=== PATIENT | female | born 1945 | race Caucasian/White ===

== ENCOUNTER 2019-02-15 06:31 | Emergency (ER) | payer MEDICARE, BC, SELFPAY ==
[2019-02-15] VITALS (7 sets, daily range): BP systolic 119–170; BP diastolic 46–77; PULSE 52–88; RESP 16–21; TEMP 36.4; O2SAT 93–100; BMI 40.5
--- NOTE | 2019-02-15 06:43 | ED.DIZZY ---
HPI - Dizziness <Dejuan Pedroza DO - Last Filed: 02/16/19 03:30> General Chief Complaint: Dizziness Stated Complaint: Dizzy Time Seen by Provider: 02/15/19 06:37 Source: patient and EMS Mode of arrival: EMS Limitations: no limitations History of Present Illness HPI Narrative: 73-year-old female nonsmoker presents with a chief complaint of dizziness upon waking this morning. 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 She states she thinks her dizziness is worse upon standing but is unclear because she has not tried since it started. She denies any chest pain or shortness of breath. She denies any recent injury nor runny nose, sore throat nor fever or chills. She does not think her dizziness changes with her eyes open versus closed. She denies any new medications or diet. She has had no recent injuries or trauma. She denies any recent long-distance travel. She recently relocated here from [place] complaint: dizziness Onset (ago): hour(s) Timing: awoke with symptoms Description: lightheadedness History of similar episodes: Yes History of trauma: No Severity: moderate Relieving factors: remaining still Exacerbating factors: movement Associated symptoms: denies other symptoms Related Data Home Medications Medication Instructions Recorded Confirmed amlodipine 10 mg PO DAILY 02/15/19 02/15/19 atorvastatin 40 mg PO DAILY 02/15/19 02/15/19 levothyroxine 150 mcg PO DAILY 02/15/19 02/15/19 losartan 100 mg PO DAILY 02/15/19 02/15/19 metoprolol succinate 25 mg PO DAILY 02/15/19 02/15/19 Previous Rx's Medication Instructions Recorded meclizine 25 mg PO TID PRN #10 tab 02/15/19 ondansetron 4 mg PO Q6-8H PRN #10 tab 02/15/19 Allergies Allergy/AdvReac Type Severity Reaction Status Date / Time No Known Drug Allergies Allergy Verified 02/15/19 07:40 Review of Systems <Dejuan Pedroza DO - Last Filed: 02/16/19 03:30> Constitutional Denies chills, Denies fever(s), Denies lethargy and Denies weakness Eyes Denies change in vision, Denies eye discharge, Denies irritation and Denies loss of vision ENT Ears, Nose, Mouth, and Throat: Denies change in voice, Reports dizziness, Denies neck pain and Denies sore throat Cardiovascular Denies chest pain, Denies irregular heart rhythm, Denies lightheadedness, Denies palpitations, Denies dyspnea, Denies dyspnea on exertion and Denies orthopnea Respiratory Denies cough, Denies dyspnea, Denies dyspnea on exertion and Denies wheezing Gastrointestinal Gastrointestinal: Denies abdominal pain, Denies change in bowel habits, Denies diarrhea, Denies nausea and Denies vomiting Genitourinary Denies hematuria, Denies flank pain, Denies urinary incontinence and Denies urinary urgency Musculoskeletal Denies neck pain Integumentary/Breasts Denies pruritus, Denies erythema, Denies rash and Denies wounds Neurologic Denies confusion, Reports dizziness, Denies loss of vision and Denies weakness Psychiatric Denies anxiety, Denies confusion, Denies depression, Denies homicidal ideation and Denies suicidal ideation Endocrine Denies palpitations Hematologic/Lymphatic Denies easy bruising Allergic/Immunologic Denies wheezing PFSH <Dejuan Pedroza DO - Last Filed: 02/16/19 03:30> Medical History (Updated 02/15/19 @ 10:41 by Justine Valderrama DO) Stroke (Acute) Social History (Updated 02/15/19 @ 06:46 by Dejuan Pedroza DO) Smoking Status: Former smoker alcohol intake: never substance use type: does not use Social History (Updated 02/15/19 @ 06:46 by Dejuan Pedroza DO) Smoking Status: Former smoker alcohol intake: never substance use type: does not use Exam <Dejuan Pedroza DO - Last Filed: 02/16/19 03:30> Narrative Exam Narrative: GENERAL: 73-year-old female appears stated age, she is anxious and has a resting tremor which is not normal HEAD: Atraumatic. Normocephalic. No temporal or scalp tenderness. EYES: Pupils equal round and reactive. Extraocular motions intact. No scleral icterus. No injection or drainage. ENT: Nose without bleeding, purulent drainage or septal hematoma. Throat without erythema, tonsillar hypertrophy or exudate. Uvula midline. Airway patent. NECK: Trachea midline. No JVD or lymphadenopathy. Supple, nontender, no meningeal signs. CARDIOVASCULAR: Regular rate and rhythm without murmurs, gallops, or rubs. RESPIRATORY: Clear to auscultation. Breath sounds equal bilaterally. No wheezes, rales, or rhonchi. GASTROINTESTINAL: Abdomen soft, non-tender, nondistended. No hepato-splenomegaly, or palpable masses. No guarding. EXTREMITIES: No clubbing, cyanosis, or edema. No joint tenderness, effusion, or edema noted. BACK: Nontender without deformity or crepitance. No flank tenderness. NEURO: Mild left-sided facial weakness AOx3. SKIN: No rash or erythema. Initial Vital Signs Initial Vital Signs: Vital Signs Temperature 97.6 F 02/15/19 06:41 Pulse Rate 68 02/15/19 06:41 Respiratory Rate 21 02/15/19 06:41 Blood Pressure 170/61 H 02/15/19 06:41 Pulse Oximetry 100 02/15/19 06:41 <Justine Valderrama DO - Last Filed: 02/15/19 11:48> Initial Vital Signs Initial Vital Signs: Vital Signs Temperature 97.6 F 02/15/19 06:41 Pulse Rate 68 02/15/19 06:41 Respiratory Rate 21 02/15/19 06:41 Blood Pressure 170/61 H 02/15/19 06:41 Pulse Oximetry 100 02/15/19 06:41 Course <Dejuan Pedroza DO - Last Filed: 02/16/19 03:30> Orders Ordered: Discontinued Medications Sodium Chloride (Normal Saline 0.9%) 500 mls @ 1,000 mls/hr IV BOLUS ONE Stop: 02/15/19 07:07 Last Infusion: 02/15/19 07:40 Dose: 0 mls/hr Admin: 02/15/19 06:53 Dose: 1,000 mls/hr Meclizine HCl (Antivert) 25 mg PO NOW ONE Stop: 02/15/19 08:15 Last Admin: 02/15/19 08:15 Dose: 25 mg Ondansetron HCl (Zofran) 4 mg IV NOW ONE Stop: 02/15/19 08:11 Last Admin: 02/15/19 08:10 Dose: 4 mg Vital Signs - 8 hr 02/15/19 06:41 02/15/19 07:56 02/15/19 08:10 Temperature 97.6 F Pulse Rate 68 64 Pulse Rate [Orthostatic Lying] 65 Pulse Rate [Orthostatic Sitting] 70 Pulse Rate [Orthostatic Standing] 88 Respiratory Rate 21 16 Blood Pressure 170/61 H Blood Pressure [Left Arm] Blood Pressure [Orthostatic Lying] 158/62 H Blood Pressure [Orthostatic Sitting] 146/77 H Blood Pressure [Orthostatic Standing] 163/76 H Pulse Oximetry 100 93 02/15/19 08:30 02/15/19 09:15 02/15/19 10:35 Temperature Pulse Rate 52 L 52 L 55 L Pulse Rate [Orthostatic Lying] Pulse Rate [Orthostatic Sitting] Pulse Rate [Orthostatic Standing] Respiratory Rate 18 16 16 Blood Pressure Blood Pressure [Left Arm] 124/55 L 128/57 L 119/46 L Blood Pressure [Orthostatic Lying] Blood Pressure [Orthostatic Sitting] Blood Pressure [Orthostatic Standing] Pulse Oximetry 99 96 94 02/15/19 11:05 Temperature Pulse Rate 53 L Pulse Rate [Orthostatic Lying] Pulse Rate [Orthostatic Sitting] Pulse Rate [Orthostatic Standing] Respiratory Rate 16 Blood Pressure 119/46 L Blood Pressure [Left Arm] Blood Pressure [Orthostatic Lying] Blood Pressure [Orthostatic Sitting] Blood Pressure [Orthostatic Standing] Pulse Oximetry 95 <Justine Valderrama, - Last Filed: 02/15/19 11:48> Orders Ordered: Discontinued Medications Sodium Chloride (Normal Saline 0.9%) 500 mls @ 1,000 mls/hr IV BOLUS ONE Stop: 02/15/19 07:07 Last Infusion: 02/15/19 07:40 Dose: 0 mls/hr Admin: 02/15/19 06:53 Dose: 1,000 mls/hr Meclizine HCl (Antivert) 25 mg PO NOW ONE Stop: 02/15/19 08:15 Last Admin: 02/15/19 08:15 Dose: 25 mg Ondansetron HCl (Zofran) 4 mg IV NOW ONE Stop: 02/15/19 08:11 Last Admin: 02/15/19 08:10 Dose: 4 mg Vital Signs - 8 hr 02/15/19 06:41 02/15/19 07:56 02/15/19 08:10 Temperature 97.6 F Pulse Rate 68 64 Pulse Rate [Orthostatic Lying] 65 Pulse Rate [Orthostatic Sitting] 70 Pulse Rate [Orthostatic Standing] 88 Respiratory Rate 21 16 Blood Pressure 170/61 H Blood Pressure [Left Arm] Blood Pressure [Orthostatic Lying] 158/62 H Blood Pressure [Orthostatic Sitting] 146/77 H Blood Pressure [Orthostatic Standing] 163/76 H Pulse Oximetry 100 93 02/15/19 08:30 02/15/19 09:15 02/15/19 10:35 Temperature Pulse Rate 52 L 52 L 55 L Pulse Rate [Orthostatic Lying] Pulse Rate [Orthostatic Sitting] Pulse Rate [Orthostatic Standing] Respiratory Rate 18 16 16 Blood Pressure Blood Pressure [Left Arm] 124/55 L 128/57 L 119/46 L Blood Pressure [Orthostatic Lying] Blood Pressure [Orthostatic Sitting] Blood Pressure [Orthostatic Standing] Pulse Oximetry 99 96 94 02/15/19 11:05 Temperature Pulse Rate 53 L Pulse Rate [Orthostatic Lying] Pulse Rate [Orthostatic Sitting] Pulse Rate [Orthostatic Standing] Respiratory Rate 16 Blood Pressure 119/46 L Blood Pressure [Left Arm] Blood Pressure [Orthostatic Lying] Blood Pressure [Orthostatic Sitting] Blood Pressure [Orthostatic Standing] Pulse Oximetry 95 MDM - Dizziness <Dejuan Pedroza, - Last Filed: 02/16/19 03:30> Lab Data Result diagrams: 02/15/19 06:20 02/15/19 06:20 Lab Results 02/15/19 02/15/19 02/15/19 Range/Units 06:20 06:20 06:20 WBC 6.9 (4.5-11.0) X10^3/uL RBC 4.80 (4.0-5.2) X10^6/uL Hgb 13.9 (12.0-16.0) g/dL Hct 41.8 (36-46) % MCV 87.2 (80-100) fL MCH 29.0 (26-34) PG MCHC 33.3 (30-36) % RDW 14.1 (11.6-14.8) % Plt Count 194 (150-400) X10^3/uL Neut % (Auto) 62.5 (50-75) % Lymph % (Auto) 26.7 (25-40) % Sanborn % (Auto) 7.6 (3-14) % Eos % (Auto) 2.6 (2-4) % Baso % (Auto) 0.6 (0-2) % Neut # (Auto) 4300 (4089-5778) /uL Lymph # (Auto) 1800 (0478-1015) /uL [place]born # (Auto) 500 (0-900) /uL Eos # (Auto) 200 (0-450) /uL Baso # (Auto) 0 (0-100) /uL Sodium 139 (137-145) mmol/L Potassium 4.6 (3.4-5.1) mmol/L Chloride 107 (98-107) mmol/L Carbon Dioxide 21 L (22-32) mmol/L BUN 25 H (7-17) mg/dL Creatinine 0.70 (0.52-1.04) mg/dL Estimated GFR > 60.0 (>60) mL/min BUN/Creatinine Ratio 35.7 H (6-22) Glucose 106 (80-110) mg/dL Lactate (0.7-2.1) mmol/L Calcium 10.7 H (8.4-10.2) mg/dL Troponin I < 0.012 (0.01-0.034) ng/mL Procalcitonin < 0.05 (<0.5) ng/mL 02/15/19 Range/Units 06:55 WBC (4.5-11.0) X10^3/uL RBC (4.0-5.2) X10^6/uL Hgb (12.0-16.0) g/dL Hct (36-46) % MCV (80-100) fL MCH (26-34) PG MCHC (30-36) % RDW (11.6-14.8) % Plt Count (150-400) X10^3/uL Neut % (Auto) (50-75) % Lymph % (Auto) (25-40) % Sanborn % (Auto) (3-14) % Eos % (Auto) (2-4) % Baso % (Auto) (0-2) % Neut # (Auto) (7602-7847) /uL Lymph # (Auto) (0396-3208) /uL Sanborn # (Auto) (0-900) /uL Eos # (Auto) (0-450) /uL Baso # (Auto) (0-100) /uL Sodium (137-145) mmol/L Potassium (3.4-5.1) mmol/L Chloride (98-107) mmol/L Carbon Dioxide (22-32) mmol/L BUN (7-17) mg/dL Creatinine (0.52-1.04) mg/dL Estimated GFR (>60) mL/min BUN/Creatinine Ratio (6-22) Glucose (80-110) mg/dL Lactate 1.9 (0.7-2.1) mmol/L Calcium (8.4-10.2) mg/dL Troponin I (0.01-0.034) ng/mL Procalcitonin (<0.5) ng/mL Urine Dip Bedside Urine Glucose Negative Bedside Urine Bilirubin - Negative Bedside Urine Ketone - Negative Urine Specific Page 1.010 Bedside Urine Occult Blood - Negative Bedside Urine pH 6.0 Bedside Urine Protein - Negative Bedside Urine Urobilinogen - Negative Bedside Urine Nitrite - Negative Bedside Urine Leukocytes - Negative Esterase ECG Data Prior ECG tracings: not available for review Interpretation: Normal sinus rhythm, rate 64, no ST elevations or depressions. No ectopy <Justine Valderrama DO - Last Filed: 02/15/19 11:48> Lab Data Attestation: I reviewed the patient's lab results. Lab Results 02/15/19 02/15/19 02/15/19 Range/Units 06:20 06:20 06:20 WBC 6.9 (4.5-11.0) X10^3/uL RBC 4.80 (4.0-5.2) X10^6/uL Hgb 13.9 (12.0-16.0) g/dL Hct 41.8 (36-46) % MCV 87.2 (80-100) fL MCH 29.0 (26-34) PG MCHC 33.3 (30-36) % RDW 14.1 (11.6-14.8) % Plt Count 194 (150-400) X10^3/uL Neut % (Auto) 62.5 (50-75) % Lymph % (Auto) 26.7 (25-40) % Sanborn % (Auto) 7.6 (3-14) % Eos % (Auto) 2.6 (2-4) % Baso % (Auto) 0.6 (0-2) % Neut # (Auto) 4300 (9356-1515) /uL Lymph # (Auto) 1800 (6904-6298) /uL Sanborn # (Auto) 500 (0-900) /uL Eos # (Auto) 200 (0-450) /uL Baso # (Auto) 0 (0-100) /uL Sodium 139 (137-145) mmol/L Potassium 4.6 (3.4-5.1) mmol/L Chloride 107 (98-107) mmol/L Carbon Dioxide 21 L (22-32) mmol/L BUN 25 H (7-17) mg/dL Creatinine 0.70 (0.52-1.04) mg/dL Estimated GFR > 60.0 (>60) mL/min BUN/Creatinine Ratio 35.7 H (6-22) Glucose 106 (80-110) mg/dL Lactate (0.7-2.1) mmol/L Calcium 10.7 H (8.4-10.2) mg/dL Troponin I < 0.012 (0.01-0.034) ng/mL Procalcitonin < 0.05 (<0.5) ng/mL 02/15/ Range/Units 06:55 WBC (4.5-11.0) X10^3/uL RBC (4.0-5.2) X10^6/uL Hgb (12.0-16.0) g/dL Hct (36-46) % MCV (80-100) fL MCH (26-34) PG MCHC (30-36) % RDW (11.6-14.8) % Plt Count (150-400) X10^3/uL Neut % (Auto) (50-75) % Lymph % (Auto) (25-40) % Sanborn % (Auto) (3-14) % Eos % (Auto) (2-4) % Baso % (Auto) (0-2) % Neut # (Auto) (8815-8842) /uL Lymph # (Auto) (3328-0026) /uL Sanborn # (Auto) (0-900) /uL Eos # (Auto) (0-450) /uL Baso # (Auto) (0-100) /uL Sodium (137-145) mmol/L Potassium (3.4-5.1) mmol/L Chloride (98-107) mmol/L Carbon Dioxide (22-32) mmol/L BUN (7-17) mg/dL Creatinine (0.52-1.04) mg/dL Estimated GFR (>60) mL/min BUN/Creatinine Ratio (6-22) Glucose (80-110) mg/dL Lactate 1.9 (0.7-2.1) mmol/L Calcium (8.4-10.2) mg/dL Troponin I (0.01-0.034) ng/mL Procalcitonin (<0.5) ng/mL Urine Dip Bedside Urine Glucose Negative Bedside Urine Bilirubin - Negative Bedside Urine Ketone - Negative Urine Specific Page 1.010 Bedside Urine Occult Blood - Negative Bedside Urine pH 6.0 Bedside Urine Protein - Negative Bedside Urine Urobilinogen - Negative Bedside Urine Nitrite - Negative Bedside Urine Leukocytes - Negative Esterase Imaging Data CT scan - head: Radiologist's impression: PROCEDURE: CT HEAD/BRAIN WO CON INDICATIONS: dizziness, hx CVA TECHNIQUE: Noncontrast 4.5 mm thick angled axial sections acquired from the foramen magnum to the vertex, with coronal and sagittal reformats. For radiation dose reduction, the following was used: automated exposure control, adjustment of mA and/or kV according to patient size. COMPARISON: None. FINDINGS: Image quality: Excellent. CSF spaces: Basal cisterns are patent. No extra-axial fluid collections. The ventricles are symmetric in size and shape. Brain: There is aneurysm coil in the left suprasellar cistern. Hypodensity and encephalomalacia in the left frontal lobe is consistent with old infarct/insult. No intracranial bleeds or masses. There is cerebral volume loss for age, with resultant ventricular and sulcal prominence. There are periventricular and deep white matter chronic small vessel ischemic changes. There is intracranial internal carotid artery atherosclerosis. Skull and face: There is a left frontal craniotomy. Calvarium and visualized facial bones appear intact, without suspicious lesions. Sinuses: There is mucosal thickening in the right axillary sinus. The mastoids are clear. IMPRESSION: 1. No acute intracranial abnormalities. 2. Left frontal craniotomy and encephalomalacia. 3. Cerebral volume loss and chronic microvascular ischemic changes. 4. Right maxillary sinusitis. The result was discussed with Dr. Valderrama on 02/15/2019 at 0758 hours. Dictated by: Shalini Felton M.D. on 02/15/2019 at 7:57 ECG Data Attestation: I personally reviewed and interpreted this ECG as follows: Prior ECG tracings: not available for review Interpretation: Sinus rhythm rate 60 for as needed rule [address] changes no T-wave inversions. MDM Narrative Medical decision making narrative: Patient signed out to me by casino shift manager provider. I have seen evaluated patient myself. She states the dizziness started when she was on the toilet this morning. She has overactive bladder and goes frequently. She was just on the commode the ed. She said getting up made her dizzy and nauseous when she sat down she started to feel little bit better however moving from the commode to the bed again she again felt nauseous. Patient received meclizine which did seem to help. Afterwards she is ambulatory with her walker symptoms not totally resolved but significantly improved. I have spoken with her son-in-law and her daughter. At this time the patient may be discharged. Son-in-law here to pick patient up. Discharge Plan Departure Patient Disposition: Home Clinical Impression: Vertigo Discharge Date/Time: 02/15/19 11:10 Interventions: ED Discharge Assessment Last Done: 02/15/19 11:05 Instructions: DI for Vertigo Activity Restrictions/Additional Instructions: *You have been diagnosed with vertigo *What to do: White you experience today is likely vertigo. Head CT and blood work are reassuring no sign of infection. Be sure to use walker while ambulating so that you do not fall. *Continue to take medications as directed sent to [facility] Zofran 4 mg every 6-8 hours if needed for nausea Meclizine 25 mg every 8 hours if needed for dizziness. *Follow up with your primary care provider in 2-3 days call [phone], to help get set up with a PCP *Return to ER if you should have increased dizziness passing out falling, chest pain, increased confusion or any new, worsening or concerning symptoms Prescriptions: New meclizine 25 mg tablet 25 mg PO TID PRN (Reason: dizziness) Qty: 10 RF: 0 ondansetron 4 mg tablet,disintegrating 4 mg PO Q6-8H PRN (Reason: nausea and vomiting) Qty: 10 RF: 0 No Action atorvastatin 40 mg tablet 40 mg PO DAILY RF: 0 amlodipine 10 mg tablet 10 mg PO DAILY RF: 0 levothyroxine 150 mcg tablet 150 mcg PO DAILY RF: 0 metoprolol succinate 25 mg tablet extended release 24 hr 25 mg PO DAILY RF: 0 losartan 100 mg tablet 100 mg PO DAILY RF: 0 Referrals: [facility] [Outside] ED Cosign/Signout <Dejuan Pedroza, DO - Last Filed: 02/16/19 03:30> Cosign ED Attending Ludivinaature Attestation: I was immediately available in the department for consultation. Documentation has been reviewed. I agree with assessment and plan.
--- NOTE | 2019-02-15 06:48 | ED_ITS ---
HPI - Dizziness <Dejuan Pedroza DO - Last Filed: 02/16/19 03:30> General Chief Complaint: Dizziness Stated Complaint: Dizzy Time Seen by Provider: 02/15/19 06:37 Source: patient and EMS Mode of arrival: EMS Limitations: no limitations History of Present Illness HPI Narrative: 73-year-old female nonsmoker presents with a chief complaint of dizziness upon waking this morning. 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 She states she thinks her dizziness is worse upon standing but is unclear because she has not tried since it started. She denies any chest pain or shortness of breath. She denies any recent injury nor runny nose, sore throat nor fever or chills. She does not think her dizziness changes with her eyes open versus closed. She denies any new medications or diet. She has had no recent injuries or trauma. She denies any recent long-distance travel. She recently relocated here from [place] complaint: dizziness Onset (ago): hour(s) Timing: awoke with symptoms Description: lightheadedness History of similar episodes: Yes History of trauma: No Severity: moderate Relieving factors: remaining still Exacerbating factors: movement Associated symptoms: denies other symptoms Related Data Home Medications Medication Instructions Recorded Confirmed amlodipine 10 mg PO DAILY 02/15/19 02/15/19 atorvastatin 40 mg PO DAILY 02/15/19 02/15/19 levothyroxine 150 mcg PO DAILY 02/15/19 02/15/19 losartan 100 mg PO DAILY 02/15/19 02/15/19 metoprolol succinate 25 mg PO DAILY 02/15/19 02/15/19 Previous Rx's Medication Instructions Recorded meclizine 25 mg PO TID PRN #10 tab 02/15/19 ondansetron 4 mg PO Q6-8H PRN #10 tab 02/15/19 Allergies Allergy/AdvReac Type Severity Reaction Status Date / Time No Known Drug Allergies Allergy Verified 02/15/19 07:40 Review of Systems <Dejuan Pedroza DO - Last Filed: 02/16/19 03:30> Constitutional Denies chills, Denies fever(s), Denies lethargy and Denies weakness Eyes Denies change in vision, Denies eye discharge, Denies irritation and Denies loss of vision ENT Ears, Nose, Mouth, and Throat: Denies change in voice, Reports dizziness, Denies neck pain and Denies sore throat Cardiovascular Denies chest pain, Denies irregular heart rhythm, Denies lightheadedness, Denies palpitations, Denies dyspnea, Denies dyspnea on exertion and Denies orthopnea Respiratory Denies cough, Denies dyspnea, Denies dyspnea on exertion and Denies wheezing Gastrointestinal Gastrointestinal: Denies abdominal pain, Denies change in bowel habits, Denies diarrhea, Denies nausea and Denies vomiting Genitourinary Denies hematuria, Denies flank pain, Denies urinary incontinence and Denies urinary urgency Musculoskeletal Denies neck pain Integumentary/Breasts Denies pruritus, Denies erythema, Denies rash and Denies wounds Neurologic Denies confusion, Reports dizziness, Denies loss of vision and Denies weakness Psychiatric Denies anxiety, Denies confusion, Denies depression, Denies homicidal ideation and Denies suicidal ideation Endocrine Denies palpitations Hematologic/Lymphatic Denies easy bruising Allergic/Immunologic Denies wheezing PFSH <Dejuan Pedroza DO - Last Filed: 02/16/19 03:30> Medical History (Updated 02/15/19 @ 10:41 by Justine Valderrama DO) Stroke (Acute) Social History (Updated 02/15/19 @ 06:46 by Dejuan Pedroza DO) Smoking Status: Former smoker alcohol intake: never substance use type: does not use Social History (Updated 02/15/19 @ 06:46 by Dejuan Pedroza DO) Smoking Status: Former smoker alcohol intake: never substance use type: does not use Exam <Dejuan Pedroza DO - Last Filed: 02/16/19 03:30> Narrative Exam Narrative: GENERAL: 73-year-old female appears stated age, she is anxious and has a resting tremor which is not normal HEAD: Atraumatic. Normocephalic. No temporal or scalp tenderness. EYES: Pupils equal round and reactive. Extraocular motions intact. No scleral icterus. No injection or drainage. ENT: Nose without bleeding, purulent drainage or septal hematoma. Throat without erythema, tonsillar hypertrophy or exudate. Uvula midline. Airway patent. NECK: Trachea midline. No JVD or lymphadenopathy. Supple, nontender, no meningeal signs. CARDIOVASCULAR: Regular rate and rhythm without murmurs, gallops, or rubs. RESPIRATORY: Clear to auscultation. Breath sounds equal bilaterally. No wheezes, rales, or rhonchi. GASTROINTESTINAL: Abdomen soft, non-tender, nondistended. No hepato- splenomegaly, or palpable masses. No guarding. EXTREMITIES: No clubbing, cyanosis, or edema. No joint tenderness, effusion, or edema noted. BACK: Nontender without deformity or crepitance. No flank tenderness. NEURO: Mild left-sided facial weakness AOx3. SKIN: No rash or erythema. Initial Vital Signs Initial Vital Signs: Vital Signs Temperature 97.6 F 02/15/19 06:41 Pulse Rate 68 02/15/19 06:41 Respiratory Rate 21 02/15/19 06:41 Blood Pressure 170/61 H 02/15/19 06:41 Pulse Oximetry 100 02/15/19 06:41 <Justine Valderrama DO - Last Filed: 02/15/19 11:48> Initial Vital Signs Initial Vital Signs: Vital Signs Temperature 97.6 F 02/15/19 06:41 Pulse Rate 68 02/15/19 06:41 Respiratory Rate 21 02/15/19 06:41 Blood Pressure 170/61 H 02/15/19 06:41 Pulse Oximetry 100 02/15/19 06:41 Course <Dejuan Pedroza DO - Last Filed: 02/16/19 03:30> Orders Ordered: Discontinued Medications Sodium Chloride (Normal Saline 0.9%) 500 mls @ 1,000 mls/hr IV BOLUS ONE Stop: 02/15/19 07:07 Last Infusion: 02/15/19 07:40 Dose: 0 mls/hr Admin: 02/15/19 06:53 Dose: 1,000 mls/hr Meclizine HCl (Antivert) 25 mg PO NOW ONE Stop: 02/15/19 08:15 Last Admin: 02/15/19 08:15 Dose: 25 mg Ondansetron HCl (Zofran) 4 mg IV NOW ONE Stop: 02/15/19 08:11 Last Admin: 02/15/19 08:10 Dose: 4 mg Vital Signs - 8 hr 02/15/19 06:41 02/15/19 07:56 02/15/19 08:10 Temperature 97.6 F Pulse Rate 68 64 Pulse Rate [Orthostatic Lying] 65 Pulse Rate [Orthostatic Sitting] 70 Pulse Rate [Orthostatic Standing] 88 Respiratory Rate 21 16 Blood Pressure 170/61 H Blood Pressure [Left Arm] Blood Pressure [Orthostatic Lying] 158/62 H Blood Pressure [Orthostatic Sitting] 146/77 H Blood Pressure [Orthostatic Standing] 163/76 H Pulse Oximetry 100 93 02/15/19 08:30 02/15/19 09:15 02/15/19 10:35 Temperature Pulse Rate 52 L 52 L 55 L Pulse Rate [Orthostatic Lying] Pulse Rate [Orthostatic Sitting] Pulse Rate [Orthostatic Standing] Respiratory Rate 18 16 16 Blood Pressure Blood Pressure [Left Arm] 124/55 L 128/57 L 119/46 L Blood Pressure [Orthostatic Lying] Blood Pressure [Orthostatic Sitting] Blood Pressure [Orthostatic Standing] Pulse Oximetry 99 96 94 02/15/19 11:05 Temperature Pulse Rate 53 L Pulse Rate [Orthostatic Lying] Pulse Rate [Orthostatic Sitting] Pulse Rate [Orthostatic Standing] Respiratory Rate 16 Blood Pressure 119/46 L Blood Pressure [Left Arm] Blood Pressure [Orthostatic Lying] Blood Pressure [Orthostatic Sitting] Blood Pressure [Orthostatic Standing] Pulse Oximetry 95 <Justine Valderrama, - Last Filed: 02/15/19 11:48> Orders Ordered: Discontinued Medications Sodium Chloride (Normal Saline 0.9%) 500 mls @ 1,000 mls/hr IV BOLUS ONE Stop: 02/15/19 07:07 Last Infusion: 02/15/19 07:40 Dose: 0 mls/hr Admin: 02/15/19 06:53 Dose: 1,000 mls/hr Meclizine HCl (Antivert) 25 mg PO NOW ONE Stop: 02/15/19 08:15 Last Admin: 02/15/19 08:15 Dose: 25 mg Ondansetron HCl (Zofran) 4 mg IV NOW ONE Stop: 02/15/19 08:11 Last Admin: 02/15/19 08:10 Dose: 4 mg Vital Signs - 8 hr 02/15/19 06:41 02/15/19 07:56 02/15/19 08:10 Temperature 97.6 F Pulse Rate 68 64 Pulse Rate [Orthostatic Lying] 65 Pulse Rate [Orthostatic Sitting] 70 Pulse Rate [Orthostatic Standing] 88 Respiratory Rate 21 16 Blood Pressure 170/61 H Blood Pressure [Left Arm] Blood Pressure [Orthostatic Lying] 158/62 H Blood Pressure [Orthostatic Sitting] 146/77 H Blood Pressure [Orthostatic Standing] 163/76 H Pulse Oximetry 100 93 02/15/19 08:30 02/15/19 09:15 02/15/19 10:35 Temperature Pulse Rate 52 L 52 L 55 L Pulse Rate [Orthostatic Lying] Pulse Rate [Orthostatic Sitting] Pulse Rate [Orthostatic Standing] Respiratory Rate 18 16 16 Blood Pressure Blood Pressure [Left Arm] 124/55 L 128/57 L 119/46 L Blood Pressure [Orthostatic Lying] Blood Pressure [Orthostatic Sitting] Blood Pressure [Orthostatic Standing] Pulse Oximetry 99 96 94 02/15/19 11:05 Temperature Pulse Rate 53 L Pulse Rate [Orthostatic Lying] Pulse Rate [Orthostatic Sitting] Pulse Rate [Orthostatic Standing] Respiratory Rate 16 Blood Pressure 119/46 L Blood Pressure [Left Arm] Blood Pressure [Orthostatic Lying] Blood Pressure [Orthostatic Sitting] Blood Pressure [Orthostatic Standing] Pulse Oximetry 95 MDM - Dizziness <Dejuan Pedroza, - Last Filed: 02/16/19 03:30> Lab Data Result diagrams: 02/15/19 06:20 02/15/19 06:20 Lab Results 02/15/19 02/15/19 02/15/19 Range/Units 06:20 06:20 06:20 WBC 6.9 (4.5-11.0) X10^3/uL RBC 4.80 (4.0-5.2) X10^6/uL Hgb 13.9 (12.0-16.0) g/dL Hct 41.8 (36-46) % MCV 87.2 (80-100) fL MCH 29.0 (26-34) PG MCHC 33.3 (30-36) % RDW 14.1 (11.6-14.8) % Plt Count 194 (150-400) X10^3/uL Neut % (Auto) 62.5 (50-75) % Lymph % (Auto) 26.7 (25-40) % Woodruff % (Auto) 7.6 (3-14) % Eos % (Auto) 2.6 (2-4) % Baso % (Auto) 0.6 (0-2) % Neut # (Auto) 4300 (1867-0635) /uL Lymph # (Auto) 1800 (0824-2856) /uL Woodruff # (Auto) 500 (0-900) /uL Eos # (Auto) 200 (0-450) /uL Baso # (Auto) 0 (0-100) /uL Sodium 139 (137-145) mmol/L Potassium 4.6 (3.4-5.1) mmol/L Chloride 107 (98-107) mmol/L Carbon Dioxide 21 L (22-32) mmol/L BUN 25 H (7-17) mg/dL Creatinine 0.70 (0.52-1.04) mg/dL Estimated GFR > 60.0 (>60) mL/min BUN/Creatinine Ratio 35.7 H (6-22) Glucose 106 (80-110) mg/dL Lactate (0.7-2.1) mmol/L Calcium 10.7 H (8.4-10.2) mg/dL Troponin I < 0.012 (0.01-0.034) ng/mL Procalcitonin < 0.05 (<0.5) ng/mL 02/15/19 Range/Units 06:55 WBC (4.5-11.0) X10^3/uL RBC (4.0-5.2) X10^6/uL Hgb (12.0-16.0) g/dL Hct (36-46) % MCV (80-100) fL MCH (26-34) PG MCHC (30-36) % RDW (11.6-14.8) % Plt Count (150-400) X10^3/uL Neut % (Auto) (50-75) % Lymph % (Auto) (25-40) % Woodruff % (Auto) (3-14) % Eos % (Auto) (2-4) % Baso % (Auto) (0-2) % Neut # (Auto) (9302-1731) /uL Lymph # (Auto) (2541-0312) /uL Woodruff # (Auto) (0-900) /uL Eos # (Auto) (0-450) /uL Baso # (Auto) (0-100) /uL Sodium (137-145) mmol/L Potassium (3.4-5.1) mmol/L Chloride (98-107) mmol/L Carbon Dioxide (22-32) mmol/L BUN (7-17) mg/dL Creatinine (0.52-1.04) mg/dL Estimated GFR (>60) mL/min BUN/Creatinine Ratio (6-22) Glucose (80-110) mg/dL Lactate 1.9 (0.7-2.1) mmol/L Calcium (8.4-10.2) mg/dL Troponin I (0.01-0.034) ng/mL Procalcitonin (<0.5) ng/mL Urine Dip Bedside Urine Glucose Negative Bedside Urine Bilirubin - Negative Bedside Urine Ketone - Negative Urine Specific Wayne 1.010 Bedside Urine Occult Blood - Negative Bedside Urine pH 6.0 Bedside Urine Protein - Negative Bedside Urine Urobilinogen - Negative Bedside Urine Nitrite - Negative Bedside Urine Leukocytes - Negative Esterase ECG Data Prior ECG tracings: not available for review Interpretation: Normal sinus rhythm, rate 64, no ST elevations or depressions. No ectopy <Justine Valderrama DO - Last Filed: 02/15/19 11:48> Lab Data Attestation: I reviewed the patient's lab results. Lab Results 02/15/19 02/15/19 02/15/19 Range/Units 06:20 06:20 06:20 WBC 6.9 (4.5-11.0) X10^3/uL RBC 4.80 (4.0-5.2) X10^6/uL Hgb 13.9 (12.0-16.0) g/dL Hct 41.8 (36-46) % MCV 87.2 (80-100) fL MCH 29.0 (26-34) PG MCHC 33.3 (30-36) % RDW 14.1 (11.6-14.8) % Plt Count 194 (150-400) X10^3/uL Neut % (Auto) 62.5 (50-75) % Lymph % (Auto) 26.7 (25-40) % Woodruff % (Auto) 7.6 (3-14) % Eos % (Auto) 2.6 (2-4) % Baso % (Auto) 0.6 (0-2) % Neut # (Auto) 4300 (5182-9090) /uL Lymph # (Auto) 1800 (5444-0878) /uL Woodruff # (Auto) 500 (0-900) /uL Eos # (Auto) 200 (0-450) /uL Baso # (Auto) 0 (0-100) /uL Sodium 139 (137-145) mmol/L Potassium 4.6 (3.4-5.1) mmol/L Chloride 107 (98-107) mmol/L Carbon Dioxide 21 L (22-32) mmol/L BUN 25 H (7-17) mg/dL Creatinine 0.70 (0.52-1.04) mg/dL Estimated GFR > 60.0 (>60) mL/min BUN/Creatinine Ratio 35.7 H (6-22) Glucose 106 (80-110) mg/dL Lactate (0.7-2.1) mmol/L Calcium 10.7 H (8.4-10.2) mg/dL Troponin I < 0.012 (0.01-0.034) ng/mL Procalcitonin < 0.05 (<0.5) ng/mL 02/15/ Range/Units 06:55 WBC (4.5-11.0) X10^3/uL RBC (4.0-5.2) X10^6/uL Hgb (12.0-16.0) g/dL Hct (36-46) % MCV (80-100) fL MCH (26-34) PG MCHC (30-36) % RDW (11.6-14.8) % Plt Count (150-400) X10^3/uL Neut % (Auto) (50-75) % Lymph % (Auto) (25-40) % Woodruff % (Auto) (3-14) % Eos % (Auto) (2-4) % Baso % (Auto) (0-2) % Neut # (Auto) (6695-2049) /uL Lymph # (Auto) (1470-1997) /uL Woodruff # (Auto) (0-900) /uL Eos # (Auto) (0-450) /uL Baso # (Auto) (0-100) /uL Sodium (137-145) mmol/L Potassium (3.4-5.1) mmol/L Chloride (98-107) mmol/L Carbon Dioxide (22-32) mmol/L BUN (7-17) mg/dL Creatinine (0.52-1.04) mg/dL Estimated GFR (>60) mL/min BUN/Creatinine Ratio (6-22) Glucose (80-110) mg/dL Lactate 1.9 (0.7-2.1) mmol/L Calcium (8.4-10.2) mg/dL Troponin I (0.01-0.034) ng/mL Procalcitonin (<0.5) ng/mL Urine Dip Bedside Urine Glucose Negative Bedside Urine Bilirubin - Negative Bedside Urine Ketone - Negative Urine Specific Wayne 1.010 Bedside Urine Occult Blood - Negative Bedside Urine pH 6.0 Bedside Urine Protein - Negative Bedside Urine Urobilinogen - Negative Bedside Urine Nitrite - Negative Bedside Urine Leukocytes - Negative Esterase Imaging Data CT scan - head: Radiologist's impression: PROCEDURE: CT HEAD/BRAIN WO CON INDICATIONS: dizziness, hx CVA TECHNIQUE: Noncontrast 4.5 mm thick angled axial sections acquired from the foramen magnum to the vertex, with coronal and sagittal reformats. For radiation dose reduction, the following was used: automated exposure control, adjustment of mA and/or kV according to patient size. COMPARISON: None. FINDINGS: Image quality: Excellent. CSF spaces: Basal cisterns are patent. No extra-axial fluid collections. The ventricles are symmetric in size and shape. Brain: There is aneurysm coil in the left suprasellar cistern. Hypodensity and encephalomalacia in the left frontal lobe is consistent with old infarct/insult. No intracranial bleeds or masses. There is cerebral volume loss for age, with resultant ventricular and sulcal prominence. There are periventricular and deep white matter chronic small vessel ischemic changes. There is intracranial internal carotid artery atherosclerosis. Skull and face: There is a left frontal craniotomy. Calvarium and visualized facial bones appear intact, without suspicious lesions. Sinuses: There is mucosal thickening in the right axillary sinus. The mastoids are clear. IMPRESSION: 1. No acute intracranial abnormalities. 2. Left frontal craniotomy and encephalomalacia. 3. Cerebral volume loss and chronic microvascular ischemic changes. 4. Right maxillary sinusitis. The result was discussed with Dr. Valderrama on 02/15/2019 at 0758 hours. Dictated by: Shalini Felton M.D. on 02/15/2019 at 7:57 ECG Data Attestation: I personally reviewed and interpreted this ECG as follows: Prior ECG tracings: not available for review Interpretation: Sinus rhythm rate 60 for as needed rule [address] changes no T-wave inversions. MDM Narrative Medical decision making narrative: Patient signed out to me by assistant casino shift manager provider. I have seen evaluated patient myself. She states the dizziness started when she was on the toilet this morning. She has overactive bladder and goes frequently. She was just on the commode the ed. She said getting up made her dizzy and nauseous when she sat down she started to feel little bit better however moving from the commode to the bed again she again felt nauseous. Patient received meclizine which did seem to help. Afterwards she is ambulatory with her walker symptoms not totally resolved but significantly improved. I have spoken with her son-in-law and her daughter. At this time the patient may be discharged. Son-in-law here to pick patient up. Discharge Plan Departure Patient Disposition: Home Clinical Impression: Vertigo Discharge Date/Time: 02/15/19 11:10 Interventions: ED Discharge Assessment Last Done: 02/15/19 11:05 Instructions: DI for Vertigo Activity Restrictions/Additional Instructions: *You have been diagnosed with vertigo *What to do: White you experience today is likely vertigo. Head CT and blood work are reassuring no sign of infection. Be sure to use walker while ambulat ing so that you do not fall. *Continue to take medications as directed sent to [facility] Zofran 4 mg every 6-8 hours if needed for nausea Meclizine 25 mg every 8 hours if needed for dizziness. *Follow up with your primary care provider in 2-3 days call [phone], to help get set up with a PCP *Return to ER if you should have increased dizziness passing out falling, chest pain, increased confusion or any new, worsening or concerning symptoms Prescriptions: New meclizine 25 mg tablet 25 mg PO TID PRN (Reason: dizziness) Qty: 10 RF: 0 ondansetron 4 mg tablet,disintegrating 4 mg PO Q6-8H PRN (Reason: nausea and vomiting) Qty: 10 RF: 0 No Action atorvastatin 40 mg tablet 40 mg PO DAILY RF: 0 amlodipine 10 mg tablet 10 mg PO DAILY RF: 0 levothyroxine 150 mcg tablet 150 mcg PO DAILY RF: 0 metoprolol succinate 25 mg tablet extended release 24 hr 25 mg PO DAILY RF: 0 losartan 100 mg tablet 100 mg PO DAILY RF: 0 Referrals: [facility] [Outside] ED Cosign/Signout <Dejuan Pedroza DO - Last Filed: 02/16/19 03:30> Cosign ED Attending Cosdarinature Attestation: I was immediately available in the department for consultation. Documentation has been reviewed. I agree with assessment and plan.
[2019-02-15 06:50] LABS: Add Manual Diff / Slide Review NO; Basophils Absolute Auto 0 /uL (0-100); Basophils Percent Auto 0.6 % (0-2); Eosinophils Absolute Auto 200 /uL (0-450); Eosinophils Percent Auto 2.6 % (2-4); Hematocrit 41.8 % (36-46); Hemoglobin 13.9 g/dL (12.0-16.0); Lymphocytes Absolute Auto 1800 /uL (1100-4500); Lymphocytes Percent Auto 26.7 % (25-40); Mean Corpuscular HGB Conc 33.3 % (30-36); Mean Corpuscular Volume 87.2 fL (80-100); Monocytes Absolute Auto 500 /uL (0-900); Monocytes Percent Auto 7.6 % (3-14); Neutrophils Absolute Auto 4300 /uL (1500-7000); Neutrophils Percent Auto 62.5 % (50-75); Platelet Count 194 X10^3/uL (150-400); Red Cell Distribution Width 14.1 % (11.6-14.8); White Blood Cell Count 6.9 X10^3/uL (4.5-11.0)
[2019-02-15] MEDS: SODIUM CHLORIDE 0.9% 500 ML 1000 ML IV (06:53)
[2019-02-15 07:06] LABS: BUN Creatinine Ratio 35.7 (6-22); Blood Urea Nitrogen 25 mg/dL (7-17); Calcium 10.7 mg/dL (8.4-10.2); Carbon Dioxide 21 mmol/L (22-32); Chloride 107 mmol/L (98-107); Estimated Glomerular Filt Rate > 60.0 mL/min (>60); Glucose 106 mg/dL (80-110); Sodium 139 mmol/L (137-145)
[2019-02-15 07:15] LABS: Lactate (Lactic Acid) 1.9 mmol/L (0.7-2.1)
[2019-02-15 07:17] LABS: HEMOLYSIS 97 (0-50); Potassium 4.6 mmol/L (3.4-5.1)
[2019-02-15 07:18] LABS: Troponin I < 0.012 ng/mL (0.01-0.034)
[2019-02-15 07:43] LABS: Procalcitonin < 0.05 ng/mL (<0.5)
--- NOTE | 2019-02-15 07:45 | PC.NURSE ---
Pt only recieved 500cc of IV flyuids total
--- NOTE | 2019-02-15 07:58 | PC.NURSE ---
Per Dr Valderrama, pt to have another 500cc bolus from 1000cc bag that was hanging. Total IV intake is 1000cc.
--- NOTE | 2019-02-15 08:04 | PC.NURSE ---
Desats to 82% while sleeping. Placed on 2l O2. MD aware
[2019-02-15] MEDS: ONDANSETRON 4 MG/2 ML INJ IV (08:10)
[2019-02-15] MEDS: MECLIZINE HCL 12.5 MG TABLET 25 MG PO (08:15)
--- NOTE | 2019-02-15 08:50 | DI.CT.S_ITS ---
PROCEDURE: CT HEAD/BRAIN WO CON INDICATIONS: dizziness, hx CVA TECHNIQUE: Noncontrast 4.5 mm thick angled axial sections acquired from the foramen magnum to the vertex, with coronal and sagittal reformats. For radiation dose reduction, the following was used: automated exposure control, adjustment of mA and/or kV according to patient size. COMPARISON: None. FINDINGS: Image quality: Excellent. CSF spaces: Basal cisterns are patent. No extra-axial fluid collections. The ventricles are symmetric in size and shape. Brain: There is aneurysm coil in the left suprasellar cistern. Hypodensity and encephalomalacia in the left frontal lobe is consistent with old infarct/insult. No intracranial bleeds or masses. There is cerebral volume loss for age, with resultant ventricular and sulcal prominence. There are periventricular and deep white matter chronic small vessel ischemic changes. There is intracranial internal carotid artery atherosclerosis. Skull and face: There is a left frontal craniotomy. Calvarium and visualized facial bones appear intact, without suspicious lesions. Sinuses: There is mucosal thickening in the right axillary sinus. The mastoids are clear. IMPRESSION: 1. No acute intracranial abnormalities. 2. Left frontal craniotomy and encephalomalacia. 3. Cerebral volume loss and chronic microvascular ischemic changes. 4. Right maxillary sinusitis. The result was discussed with Dr. Valderrama on 02/15/2019 at 0758 hours. Dictated by: Shalini Felton M.D. on 02/15/2019 at 7:57 Approved by: Shalini Felton M.D. on 02/15/2019 at 9:09
[2019-02-16 18:40] LABS: Acinetobacter baumannii Not Detected (Not Detect); Candida albicans Not Detected (Not Detect); Candida glabrata Not Detected (Not Detect); Candida krusei Not Detected (Not Detect); Candida parapsilosis Not Detected (Not Detect); Candida tropicalis Not Detected (Not Detect); E. coli Not Detected (Not Detect); Enterobacter cloacae complex Not Detected (Not Detect); Enterobacteriaceae species Not Detected (Not Detect); Enterococcus species Not Detected (Not Detect); Haemophilus influenzae Not Detected (Not Detect); Listeria monocytogenes Not Detected (Not Detect); Neisseria meningitidis Not Detected (Not Detect); Proteus species Not Detected (Not Detect); Pseudomonas aeruginosa Not Detected (Not Detect); Serratia marcescens Not Detected (Not Detect); Staphylococcus species Not Detected (Not Detect); Streptococcus agalactiae (Gr B Not Detected (Not Detect); Streptococcus pneumonia Not Detected (Not Detect); Streptococcus pyogenes (Gr A) Not Detected (Not Detect); Streptococcus species Not Detected (Not Detect)
--- NOTE | 2019-03-02 09:49 | PC.NURSE ---
Patient calls about letter she received, s/w Dr Pedroza about culture results. Information to assist her to find primary care is give by me
== END 2019-02-15 11:10 | disposition home or self-care (01) ==
PROVIDERS: Emergency Medicine; Emergency Provider Emergency Medicine
DX: R42 Dizziness and giddiness (principal); I69.892 Facial weakness following other cerebrovascular disease; I95.9 Hypotension, unspecified
CPT/HCPCS: 36415; 36591; 70450; 80048; 81003; 83605; 84145; 84484; 85025; 87040; 87150; 87205; 93005; 93041; 96361; 96374; 99285; J2405

== ENCOUNTER 2019-03-29 11:43 | Emergency (ER) | payer MEDICARE, BC, SELFPAY ==
[2019-03-29 11:58] VITALS: BP 157/82; PULSE 78; RESP 18; TEMP 36.4; O2SAT 97
--- NOTE | 2019-03-29 12:29 | ED.RECABL ---
HPI - Recheck/Abnormal Lab/Rx <CHLOE Rodríguez - Last Filed: 03/29/19 22:06> General Chief Complaint: Recheck/Abnormal Lab/Rx Stated Complaint: Repeat Lab work Time Seen by Provider: 03/29/19 11:59 Source: patient Mode of arrival: ambulatory Limitations: no limitations History of Present Illness HPI narrative: 73-year-old female presents emergency department today stating that she got a letter from [facility] stating that she had a positive blood culture, from her ER visit on 02/15/2019. She states she was told that the letter would be sent her primary care provider. She saw her primary care provider 2-3 weeks ago, her primary care provider said that she did not receive the letter but the patient brought the letter in with her, at that time patient was not given any antibiotics as she did not have any symptoms. Patient decided to return check in to the emergency department because she was unsure what to do with the results from a letter. Unrelated, she reports having occasional burning when she pees due to an overactive bladder for the past few days. She denies any fevers, chest pain, shortness of breath, weakness, dizziness, sore throat, cough, abdominal pain, vomiting, nausea, diarrhea, constipation, or malaise. Related Data Home Medications Medication Instructions Recorded Confirmed amlodipine 10 mg PO DAILY 02/15/19 02/15/19 atorvastatin 40 mg PO DAILY 02/15/19 02/15/19 levothyroxine 150 mcg PO DAILY 02/15/19 02/15/19 losartan 100 mg PO DAILY 02/15/19 02/15/19 metoprolol succinate 25 mg PO DAILY 02/15/19 02/15/19 Previous Rx's Medication Instructions Recorded meclizine 25 mg PO TID PRN #10 tab 02/15/19 ondansetron 4 mg PO Q6-8H PRN #10 tab 02/15/19 cephalexin 500 mg PO BID 5 Days #10 cap 03/29/19 Allergies Allergy/AdvReac Type Severity Reaction Status Date / Time No Known Drug Allergies Allergy Verified 02/15/19 07:40 Review of Systems <CHLOE Rodríguez - Last Filed: 03/29/19 22:06> Review of Systems Narrative: REVIEW OF SYSTEMS: GENERAL: Denies fever or chills. HENT: No head trauma, hearing loss or sore throat. EYES: No loss of vision, double vision, eye pain, or irritation. CARDIOVASCULAR: No chest pain or syncope. RESPIRATORY: No shortness of breath or cough. GASTROINTESTINAL: No nausea, vomiting, diarrhea, or constipation. GENITOURINARY: Patient complains of dysuria, see HPI. She denies flank pain. MUSCULOSKELETAL: No pain, weakness, or deformities. INTEGUMENTARY: No rash, lesions, or pruritus. NEURO: No numbness, tingling, memory loss, or confusion. PSYCH: No behavior or mood changes. PFSH <CHLOE Rodríguez - Last Filed: 03/29/19 22:06> Medical History Stroke (Acute) Social History Smoking Status: Former smoker alcohol intake: never substance use type: does not use Social History Smoking Status: Former smoker alcohol intake: never substance use type: does not use Exam <CHLOE Rodríguez - Last Filed: 03/29/19 22:06> Initial Vital Signs Initial Vital Signs: Vital Signs Temperature 97.6 F 03/29/19 11:58 Pulse Rate 78 03/29/19 11:58 Respiratory Rate 18 03/29/19 11:58 Blood Pressure 157/82 H 03/29/19 11:58 Pulse Oximetry 97 03/29/19 11:58 PHYSICAL EXAMINATION: GENERAL: Well groomed, alert, and cooperative. Answers questions promptly and appropriately. Vital signs noted. HENT: Normocephalic, atraumatic. Ear canals patent. Oral mucosa is pink and moist. EYES: Conjunctiva pink, sclera white, no periorbital swelling. CHEST: Normal to inspection and without deformities. CARDIOVASCULAR: S1 and S2 sounds normal. Regular rate and rhythm, no murmurs, clicks, or bruits. No pedal edema. RESPIRATORY: Normal respiratory rate, trachea midline, airway patent. No stridor, nasal flaring or accessory muscle use. Lungs are clear in all lyman without wheeze, rhonchi, or crackles. GASTROINTESTINAL: Bowel sounds normoactive. Abdomen is soft and non-tender. No organomegaly. No flank tenderness. MUSCULOSKELETAL: Normal gait and coordination, patient uses a walker. Equal tone and mass bilaterally. EXTREMITIES: CMS intact. Moves all extremities. SKIN: Warm, dry, soft, appropriate color for ethnicity. No lesions, rashes, or wounds. NEURO: Alert and Oriented X 3. Good coordination. No ataxia, or sensory deficits, or cognitive issues. PSYCH: Appropriate affect and mood. <Ana Chamberlain DO - Last Filed: 03/30/19 07:40> Initial Vital Signs Initial Vital Signs: Vital Signs Temperature 97.6 F 03/29/19 11:58 Pulse Rate 78 03/29/19 11:58 Respiratory Rate 18 03/29/19 11:58 Blood Pressure 157/82 H 03/29/19 11:58 Pulse Oximetry 97 03/29/19 11:58 Course <CHLOE Rodríguez - Last Filed: 03/29/19 22:06> Course Course Narrative: After discussion with patient, she was given option for redraw blood cultures. Since the time frame has been over a month and she has remained symptom free, it is very unlikely that she has a septic or bloodstream infection. Patient opted to not have a blood culture drawn at this time, very strict return precautions were given. Patient also mentioned that she had urinary tract symptoms, POC urine dip was ordered. Orders Ordered: ED Orders 03/29/19 13:10 Urine Culture Stat Urine Microscopic Stat Vital Signs Vital signs: Vital Signs - 8 hr 03/29/19 11:58 Temperature 97.6 F Pulse Rate 78 Respiratory Rate 18 Blood Pressure 157/82 H Pulse Oximetry 97 <Ana Chamberlain DO - Last Filed: 03/30/19 07:40> Orders Ordered: ED Orders 03/29/19 13:10 Urine Culture Stat Urine Microscopic Stat Vital Signs Vital signs: Vital Signs - 8 hr 03/29/19 11:58 Temperature 97.6 F Pulse Rate 78 Respiratory Rate 18 Blood Pressure 157/82 H Pulse Oximetry 97 MDM - Recheck/Abnormal Lab/Rx <CHLOE Rodríguez - Last Filed: 03/29/19 22:06> Medical Records Attestation: I reviewed the patient's medical records. Lab Data Attestation: I reviewed the patient's lab results. Labs: Lab Results 03/29/19 Range/Units 13:10 Urine RBC 1-5/hpf (0-5/HPF) Urine WBC 1-5/hpf (0-5/HPF) Ur Squamous Epith Cells 1-5 /hpf (0-5/HPF) Calcium Oxalate Crystal Few H Urine Bacteria Many (>30) H (None) Ur Culture Indicated? Specimen cultured Micro UA Comment Mariusz esterase + Urine Dip Bedside Urine Glucose Negative Bedside Urine Bilirubin - Negative Bedside Urine Ketone - Negative Urine Specific [place] 1.015 Bedside Urine Occult Blood +/- Bedside Urine pH 6.0 Bedside Urine Protein - Negative Bedside Urine Urobilinogen - Negative Bedside Urine Nitrite - Negative Bedside Urine Leukocytes - Negative Esterase MDM Narrative Medical decision making narrative: I suspect that her blood culture may have been a contaminant as she has not had symptoms of infection for over a month (no fevers, chills, nausea, vomiting, chest pain, malaise, or weakness), you're she was also seen by her primary care provider who evaluated her, and a bacteria was noted on 1 blood culture only. Suspect that her urinary symptoms are also caused by UTI (complains of dysuria and burning, positive blood on POC, as well as positive bacteria on micro). Strict return precautions were given and follow-up instructions discussed. <Ana Chamberlain, DO - Last Filed: 03/30/19 07:40> Lab Data Labs: Lab Results 03/29/19 Range/Units 13:10 Urine RBC 1-5/hpf (0-5/HPF) Urine WBC 1-5/hpf (0-5/HPF) Ur Squamous Epith Cells 1-5 /hpf (0-5/HPF) Calcium Oxalate Crystal Few H Urine Bacteria Many (>30) H (None) Ur Culture Indicated? Specimen cultured Micro UA Comment Mariusz esterase + Urine Dip Bedside Urine Glucose Negative Bedside Urine Bilirubin - Negative Bedside Urine Ketone - Negative Urine Specific [place] 1.015 Bedside Urine Occult Blood +/- Bedside Urine pH 6.0 Bedside Urine Protein - Negative Bedside Urine Urobilinogen - Negative Bedside Urine Nitrite - Negative Bedside Urine Leukocytes - Negative Esterase MDM Narrative Medical decision making narrative: Case and plan discussed. Patient was seen in January when cultures were resulted. She has been asymptomatic since. Discharge Plan Departure Patient Disposition: Home Clinical Impression: Abnormal laboratory test Urinary tract infection Qualifiers: Urinary tract infection type: acute cystitis Hematuria presence: with hematuria Qualified Code(s): N30.01 - Acute cystitis with hematuria Discharge Date/Time: 03/29/19 13:31 Activity Restrictions/Additional Instructions: Thank you for entrusting me with your care today. As discussed, since you are having no symptoms and have had no symptoms the past month, it is possible that your abnormal blood culture was a contaminant. Additionally, your urine test was positive for an urinary tract infection. Please take your antibiotics as instructed, they were sent to [facility] in [place]. I suggest that you follow-up with her primary care provider in the next few weeks for re-evaluation. Return to the emergency department immediately if you developed fevers, chest pain, shortness of breath, weakness, syncope, abdominal pain, vomiting, or other concerns. Prescriptions: New cephalexin 500 mg capsule 500 mg PO BID 5 Days Qty: 10 RF: 0 No Action atorvastatin 40 mg tablet 40 mg PO DAILY RF: 0 amlodipine 10 mg tablet 10 mg PO DAILY RF: 0 levothyroxine 150 mcg tablet 150 mcg PO DAILY RF: 0 metoprolol succinate 25 mg tablet extended release 24 hr 25 mg PO DAILY RF: 0 losartan 100 mg tablet 100 mg PO DAILY RF: 0 meclizine 25 mg tablet 25 mg PO TID PRN (Reason: dizziness) Qty: 10 RF: 0 ondansetron 4 mg tablet,disintegrating 4 mg PO Q6-8H PRN (Reason: nausea and vomiting) Qty: 10 RF: 0
[2019-03-29 13:14] LABS: Bacteria Urine Many (>30); Calcium Oxalate Crystals Urine Few; Culture Indicated Urine Specimen Cultured; RBC Urine 1-5/HPF (0-5/HPF); Squamous Epithelial Cell Urine 1-5 /HPF (0-5/HPF); Urine Comments LEU ESTERASE +; WBC Urine 1-5/HPF (0-5/HPF)
== END 2019-03-29 13:31 | disposition home or self-care (01) ==
PROVIDERS: Emergency Provider Nurse Practitioner
DX: N30.01 Acute cystitis with hematuria (principal)
CPT/HCPCS: 81003; 81015; 87077; 87086; 87186; 99282; 99283

== ENCOUNTER 2019-04-17 10:50 | Emergency (ER) | payer MEDICARE, BC, SELFPAY ==
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
[2019-04-17 10:59] VITALS: BP 158/68; PULSE 70; RESP 18; TEMP 36.7; O2SAT 98
[2019-04-17] MEDS: ACETAMINOPHEN 325 MG TABLET 975 MG PO (12:48)
[2019-04-17 13:25] VITALS: BP 155/77; PULSE 56; RESP 15; O2SAT 97
== END 2019-04-17 14:32 | disposition home or self-care (01) ==
PROVIDERS: Emergency Provider Emergency Medicine
DX: S70.01XA Contusion of right hip, initial encounter (principal); W18.30XA Fall on same level, unspecified, initial encounter
CPT/HCPCS: 73030; 73502; 99283

== ENCOUNTER 2019-05-16 10:36 | Inpatient (IN) | payer OTHER, MEDICARE, BC, SELFPAY ==
[2019-05-16] VITALS (8 sets, daily range): BP systolic 166–180; BP diastolic 66–85; PULSE 63–83; RESP 16–23; TEMP 36.4–37.1; O2SAT 94–99; BMI 44.6
--- NOTE | 2019-05-16 10:56 | DI.RAD.S_ITS ---
PROCEDURE: XR PELVIS 1-2V INDICATIONS: fall, trauma TECHNIQUE: 1 view(s) of the pelvis acquired. COMPARISON: [facility], CR, XR HIP W PEL IF DONE RT 2V, 04/17/2019, 11:16. FINDINGS: Bones: No displaced pelvic fractures are appreciated. There are mild to moderate degenerative changes of the pelvic joints. No suspicious osseous lesions are evident. Prominent degenerative changes of the included lower lumbar spine are present. Soft tissues: Visualized bowel gas pattern is normal. There appears to be a large amount stool within the right abdomen. No suspicious soft tissue calcifications. IMPRESSION: No displaced pelvic fractures are appreciated. If there is high clinical concern for an acute fracture, CT is recommended for further evaluation. Dictated by: Alonso Montes M.D. on 05/16/2019 at 10:24 Approved by: Alonso Montes M.D. on 05/16/2019 at 10:25
--- NOTE | 2019-05-16 10:56 | DI.RAD.S_ITS ---
PROCEDURE: XR CHEST 1V INDICATIONS: fall, trauma TECHNIQUE: One view of the chest was acquired. COMPARISON: None. FINDINGS: Surgical changes and devices: None. Lungs and pleura: Mild pulmonary vascular congestion is seen. Elevation of right hemidiaphragm is seen with blunting of right costophrenic angle suggestive of small right pleural effusion. No definite focal infiltrate. No gross pneumothorax. Mediastinum: Mediastinal contours appear normal. Heart size is enlarged. Bones and chest wall: No suspicious bony lesions. Overlying soft tissues appear unremarkable. IMPRESSION: Cardiomegaly, mild congestion and small right pleural effusion. No definite focal infiltrate or gross pneumothorax. Dictated by: Adonis Rollins M.D. on 05/16/2019 at 11:21 Approved by: Adnois Rollins M.D. on 05/16/2019 at 11:26
--- NOTE | 2019-05-16 10:57 | DI.CT.S_ITS ---
PROCEDURE: CT HEAD/BRAIN WO CON INDICATIONS: fall, head injury, no recall TECHNIQUE: Noncontrast 4.5 mm thick angled axial sections acquired from the foramen magnum to the vertex, with coronal and sagittal reformats. For radiation dose reduction, the following was used: automated exposure control, adjustment of mA and/or kV according to patient size. COMPARISON: [facility], CT, CT HEAD WITHOUT CONTRAST, 04/23/2019, 15:36. [facility], CT, CT HEAD/BRAIN WO CON, 02/15/2019, 7:29. FINDINGS: Image quality: Excellent. CSF spaces: Basal cisterns are patent. No abnormal extra-axial fluid collections. The ventricles are stable in size and shape. Brain: No acute intracranial bleeds or masses. Stable large area of encephalomalacia involving the left frontal lobe underlying postoperative changes from previous left frontal craniotomy. Persistent dense calcifications in region of encephalomalacia, unchanged. Metallic density is again noted in the suprasellar region slightly left of midline, likely representing aneurysm coils. Adjacent peripherally calcified lesion is also unchanged. There is moderate cerebral volume loss for age, with resultant ventricular and sulcal prominence. There are periventricular and deep white matter chronic small vessel ischemic changes. There is intracranial internal carotid artery atherosclerosis. No midline shift of structures. Skull and face: Stable postoperative changes from left frontal craniotomy. Calvarium and visualized facial bones appear intact, without suspicious lesions. Sinuses: There is right maxillary sinus mucosal thickening. Remainder of the paranasal sinuses appear clear. Mastoid air cells are well-aerated. IMPRESSION: 1. Stable CT evaluation of the head without acute intracranial abnormalities. No acute calvarial fractures. 2. Stable large area of left frontal encephalomalacia and postoperative changes from previous left frontal craniotomy. Changes compatible with previous aneurysm coiling. 3. Stable age-related senescent changes and sequela of chronic small vessel ischemic disease. 4. Right maxillary sinus disease. Dictated by: Eyal Hickman M.D. on 05/16/2019 at 12:09 Approved by: Eyal Hickman M.D. on 05/16/2019 at 12:16
[2019-05-16 11:07] LABS: Add Manual Diff / Slide Review NO; Basophils Absolute Auto 0 /uL (0-100); Basophils Percent Auto 0.2 % (0-2); Eosinophils Absolute Auto 0 /uL (0-450); Hematocrit 48.4 % (36-46); Hemoglobin 15.8 g/dL (12.0-16.0); Lymphocytes Absolute Auto 500 /uL (1100-4500); Lymphocytes Percent Auto 4.1 % (25-40); Mean Corpuscular HGB Conc 32.7 % (30-36); Mean Corpuscular Hemoglobin 28.9 PG (26-34); Mean Corpuscular Volume 88.2 fL (80-100); Monocytes Absolute Auto 400 /uL (0-900); Monocytes Percent Auto 3.2 % (3-14); Neutrophils Absolute Auto 11400 /uL (1500-7000); Neutrophils Percent Auto 92.5 % (50-75); Platelet Count 223 X10^3/uL (150-400); Red Blood Cell Count 5.48 X10^6/uL (4.0-5.2); White Blood Cell Count 12.3 X10^3/uL (4.5-11.0)
[2019-05-16 11:15] LABS: Alanine Aminotransferase 22 IU/L (9-52); Albumin 4.8 g/dL (3.5-5.0); Albumin Globulin Ratio 1.5 (1.0-2.8); Alkaline Phosphatase 141 U/L (38-126); Aspartate Aminotransferase 30 IU/L (14-36); BUN Creatinine Ratio 27.1 (6-22); Bilirubin Total 0.9 mg/dL (0.2-1.3); Blood Urea Nitrogen 19 mg/dL (7-17); Calcium 10.4 mg/dL (8.4-10.2); Carbon Dioxide 23 mmol/L (22-32); Chloride 103 mmol/L (98-107); Creatine Kinase 208 U/L (30-135); Estimated Glomerular Filt Rate > 60.0 mL/min (>60); Globulin 3.3 g/dL (1.7-4.1); Glucose 173 mg/dL (80-110); HEMOLYSIS < 15 (0-50); Potassium 3.9 mmol/L (3.4-5.1); Sodium 140 mmol/L (137-145); Total Protein 8.1 g/dL (6.3-8.2)
[2019-05-16] MEDS: SODIUM CHLORIDE 0.9% 1,000 ML 1000 ML IV (11:15)
[2019-05-16 11:16] LABS: Lactate (Lactic Acid) 2.5 mmol/L (0.7-2.1)
--- NOTE | 2019-05-16 11:24 | ED_ITS ---
HPI - Fall General Chief Complaint: Fall Stated Complaint: GLF, on floor 15 hrs Time Seen by Provider: 05/16/19 10:36 Source: patient and EMS Mode of arrival: EMS Limitations: no limitations History of Present Illness HPI Narrative: 73-year-old female former smoker with history of hypertension and hyperlipidemia presents by EMS after a syncopal episode left her on the ground for 15 hours. She feels very out of it, has very little recall to the event but states she had been in her normal state of health up until yesterday. She does not think she hit her head but she does have some bruising on the right occiput. She feels very weak, lightheaded and has pain in her abdomen and left hip. She denies any fever chills. She denies any trouble breathing. MD complaint: fall Onset (ago): hour(s) Fall from: standing Fall witnessed: no Place fall occurred: home Loss of consciousness: unsure Prolonged down time: yes Location of injury: head, abdomen and pelvis Severity: moderate Quality: aching Associated symptoms (after fall): weakness, shortness of breath, abdominal pain and unable to walk Related Data Home Medications Medication Instructions Recorded Confirmed atorvastatin 40 mg PO DAILY 02/15/19 05/16/19 levothyroxine 150 mcg PO DAILY 02/15/19 05/16/19 losartan 100 mg PO DAILY 02/15/19 05/16/19 metoprolol succinate 25 mg PO DAILY 02/15/19 05/16/19 betamethasone dipropionate 1 applic TOPICAL BID PRN 04/17/19 05/16/19 lamotrigine 50 mg PO BID 04/17/19 05/16/19 coal tar [Neutrogena T-Gel] 1 applic TOPICAL QPM PRN 05/16/19 05/16/19 garlic 1 cap PO DAILY 05/16/19 05/16/19 multivitamin 1 tab PO DAILY 05/16/19 05/16/19 oxybutynin chloride 5 mg PO TID 05/16/19 05/16/19 Previous Rx's Medication Instructions Recorded meclizine 25 mg PO TID PRN #10 tab 02/15/19 ondansetron 4 mg PO Q6-8H PRN #10 tab 02/15/19 Allergies Allergy/AdvReac Type Severity Reaction Status Date / Time No Known Drug Allergies Allergy Verified 02/15/19 07:40 Review of Systems Constitutional Constitutional: Denies chills, Denies fatigue, Denies fever(s), Denies frequent falls, Denies lethargy and Reports weakness Eyes Eyes: Denies change in vision, Denies eye discharge, Denies irritation and Denies loss of vision ENT Ears, Nose, Mouth, and Throat: Denies change in voice, Denies dizziness, Denies neck pain, Denies sore throat and Denies throat swelling Cardiovascular Cardiovascular: Denies chest pain, Denies irregular heart rhythm, Denies lightheadedness, Denies palpitations, Denies dyspnea, Denies dyspnea on exertion and Denies orthopnea Respiratory Respiratory: Denies cough, Denies dyspnea, Denies dyspnea on exertion and Denies wheezing Gastrointestinal Gastrointestinal: Reports abdominal pain, Denies change in bowel habits, Denies diarrhea, Denies nausea and Denies vomiting Genitourinary Genitourinary: Denies hematuria, Denies flank pain, Denies urinary incontinence and Denies urinary urgency Musculoskeletal Musculoskeletal: Denies back pain, Reports limited range of motion, Reports muscle weakness, Denies neck pain, Denies numbness and Denies tingling Integumentary/Breasts Skin/Breast: Denies pruritus, Denies erythema, Denies rash and Denies wounds Neurologic Neurologic: Denies behavioral changes, Denies confusion, Denies dizziness, Denies frequent falls, Denies loss of vision, Denies numbness, Denies tingling and Reports weakness Psychiatric Psychiatric: Denies anxiety, Denies behavioral changes, Denies confusion, Denies depression, Denies homicidal ideation and Denies suicidal ideation Endocrine Endocrine: Denies fatigue, Denies flushing and Denies palpitations Hematologic/Lymphatic Hematologic/Lymphatic: Denies easy bruising Allergic/Immunologic Allergic/Immunologic: Denies urticaria, Denies throat swelling and Denies wheezing Patient History Medical History Stroke (Acute) Social History household members: friend(s) Smoking Status: Former smoker alcohol intake: former substance use type: does not use alcohol intake frequency: holidays/special occasions only Substance Use Type: does not use Exam Narrative Exam Narrative: GENERAL: [73] year old patient appears stated age. Obviously unwell, very dry mucous membranes, in pain, GCS 15 HEAD: Bruising on right occiput EYES: Pupils equal round and reactive. Extraocular motions intact. No scleral icterus. No injection or drainage. ENT: Dry mucous membranes Nose without bleeding, purulent drainage. Throat without erythema, tonsillar hypertrophy or exudate. Airway patent. NECK: Trachea midline. Non tender CARDIOVASCULAR: Regular rate and rhythm without murmurs, gallops, or rubs. RESPIRATORY: Clear to auscultation. Breath sounds equal bilaterally. No wheezes, rales, or rhonchi. GASTROINTESTINAL: Abdomen soft, distended with generalized tenderness, EXTREMITIES: Left hip tender to palpate BACK: Nontender without deformity or crepitance. No flank tenderness. NEURO: AOx3. SKIN: No rash or erythema of visible areas Initial Vital Signs Initial Vital Signs: Vital Signs Temperature 97.5 F L 05/16/19 11:02 Pulse Rate 63 05/16/19 11:02 Respiratory Rate 16 05/16/19 11:02 Blood Pressure 180/78 H 05/16/19 11:02 Pulse Oximetry 97 05/16/19 11:02 Course Orders Ordered: ED Orders 05/16/19 10:45 B Type Natriuretic Peptide Stat Complete Blood Count AUTO DIFF Stat Comprehensive Metabolic Panel Stat Lactate (Lactic Acid) Stat Magnesium Stat Troponin & CK Cardiac Panel Stat 05/16/19 10:51 Venous Blood Gas Stat 05/16/19 10:56 XR chest 1V Stat XR pelvis 1-2V Stat 05/16/19 10:57 CT head/brain wo con Stat 05/16/19 11:25 CT chest abd pel w con Stat Blood Culture Stat Acetaminophen (Tylenol) 650 mg PO Q6HR PRN PRN Reason: As Needed for Fever/Mild Pain Last Admin: 05/16/19 16:18 Dose: 650 mg Documented by: MARLEN Atorvastatin Calcium (Lipitor) 40 mg PO DAILY [facility] Enoxaparin Sodium (Lovenox) 40 mg SUBCUT DAILY [facility] Sodium Chloride (Normal Saline 0.9%) 1,000 mls @ 100 mls/hr IV CONT [facility] Last Admin: 05/16/19 16:15 Dose: 100 mls/hr Documented by: MARLEN Lamotrigine (Lamictal) 50 mg PO BID [facility] Levothyroxine Sodium (Synthroid) 150 mcg PO 0600 [facility] Losartan Potassium (Cozaar) 100 mg PO DAILY [facility] Metoprolol Succinate (Toprol Xl) 25 mg PO DAILY [facility] Multivitamins (Tab-A-Yadi) 1 tab PO DAILY [facility] Nystatin (Nystop) 1 applic TOP BID [facility] Oxybutynin (Ditropan) 5 mg PO TID [facility] Discontinued Medications Sodium Chloride (Normal Saline 0.9%) 1,000 mls @ 1,000 mls/hr IV BOLUS ONE Stop: 05/16/19 11:55 Last Infusion: 05/16/19 12:37 Dose: 0 mls/hr Documented by: Admin: 05/16/19 11:15 Dose: 1,000 mls/hr Documented by: NI Vital Signs Vital signs: Vital Signs - 8 hr 05/16/19 11:30 05/16/19 12:30 Pulse Rate 65 68 Respiratory Rate 16 23 Blood Pressure [Right Arm] 178/67 H 179/69 H Pulse Oximetry 94 99 MDM - Fall Lab Data Result diagrams: 05/16/19 10:45 05/16/19 10:45 Labs: Lab Results 05/16/19 05/16/19 05/16/19 Range/Units 10:45 10:45 10:45 WBC 12.3 H (4.5-11.0) X10^3/uL RBC 5.48 H (4.0-5.2) X10^6/uL Hgb 15.8 (12.0-16.0) g/dL Hct 48.4 H (36-46) % MCV 88.2 (80-100) fL MCH 28.9 (26-34) PG MCHC 32.7 (30-36) % RDW 15.0 H (11.6-14.8) % Plt Count 223 (150-400) X10^3/uL Neut % (Auto) 92.5 H (50-75) % Lymph % (Auto) 4.1 L (25-40) % [place] % (Auto) 3.2 (3-14) % Eos % (Auto) 0.0 L (2-4) % Baso % (Auto) 0.2 (0-2) % Neut # (Auto) 82573 H (2967-5549) /uL Lymph # (Auto) 500 L (3346-4840) /uL [place] # (Auto) 400 (0-900) /uL Eos # (Auto) 0 (0-450) /uL Baso # (Auto) 0 (0-100) /uL VBG pH (7.33-7.43) VBG pCO2 (45-50) mmHg VBG pO2 (35-45) mmHg VBG HCO3 (23-28) mmol/L VBG Total CO2 (24-29) mmol/L VBG O2 Saturation (70-75) % VBG Base Excess (0-4) mmol/L Sodium 140 (137-145) mmol/L Potassium 3.9 (3.4-5.1) mmol/L Chloride 103 (98-107) mmol/L Carbon Dioxide 23 (22-32) mmol/L BUN 19 H (7-17) mg/dL Creatinine 0.70 (0.52-1.04) mg/dL Estimated GFR > 60.0 (>60) mL/min BUN/Creatinine Ratio 27.1 H (6-22) Glucose 173 H (80-110) mg/dL Lactate 2.5 H (0.7-2.1) mmol/L Calcium 10.4 H (8.4-10.2) mg/dL Magnesium 2.0 (1.6-2.3) mg/dL Total Bilirubin 0.9 (0.2-1.3) mg/dL AST 30 (14-36) IU/L ALT 22 (9-52) IU/L Alkaline Phosphatase 141 H (38-126) U/L Total Creatine Kinase 208 H (30-135) U/L CK-MB (CK-2) 4.15 H (<2.37) ng/mL CK-MB (CK-2) Rel Index 2.0 (1.5-5.0) % Troponin I 0.036 H (0.01-0.034) ng/mL B-Natriuretic Peptide 105 H (<100) Total Protein 8.1 (6.3-8.2) g/dL Albumin 4.8 (3.5-5.0) g/dL Globulin 3.3 (1.7-4.1) g/dL Albumin/Globulin Ratio 1.5 (1.0-2.8) 05/16/19 Range/Units 10:51 WBC (4.5-11.0) X10^3/uL RBC (4.0-5.2) X10^6/uL Hgb (12.0-16.0) g/dL Hct (36-46) % MCV (80-100) fL MCH (26-34) PG MCHC (30-36) % RDW (11.6-14.8) % Plt Count (150-400) X10^3/uL Neut % (Auto) (50-75) % Lymph % (Auto) (25-40) % [place] % (Auto) (3-14) % Eos % (Auto) (2-4) % Baso % (Auto) (0-2) % Neut # (Auto) (5851-7842) /uL Lymph # (Auto) (1308-0373) /uL [place] # (Auto) (0-900) /uL Eos # (Auto) (0-450) /uL Baso # (Auto) (0-100) /uL VBG pH 7.37 (7.33-7.43) VBG pCO2 42.5 L (45-50) mmHg VBG pO2 27 L (35-45) mmHg VBG HCO3 25 (23-28) mmol/L VBG Total CO2 26 (24-29) mmol/L VBG O2 Saturation 49 L (70-75) % VBG Base Excess -1.0 L (0-4) mmol/L Sodium (137-145) mmol/L Potassium (3.4-5.1) mmol/L Chloride (98-107) mmol/L Carbon Dioxide (22-32) mmol/L BUN (7-17) mg/dL Creatinine (0.52-1.04) mg/dL Estimated GFR (>60) mL/min BUN/Creatinine Ratio (6-22) Glucose (80-110) mg/dL Lactate (0.7-2.1) mmol/L Calcium (8.4-10.2) mg/dL Magnesium (1.6-2.3) mg/dL Total Bilirubin (0.2-1.3) mg/dL AST (14-36) IU/L ALT (9-52) IU/L Alkaline Phosphatase (38-126) U/L Total Creatine Kinase (30-135) U/L CK-MB (CK-2) (<2.37) ng/mL CK-MB (CK-2) Rel Index (1.5-5.0) % Troponin I (0.01-0.034) ng/mL B-Natriuretic Peptide (<100) Total Protein (6.3-8.2) g/dL Albumin (3.5-5.0) g/dL Globulin (1.7-4.1) g/dL Albumin/Globulin Ratio (1.0-2.8) Imaging Data CT scan - chest: Radiologist's impression: [address] [address] [address] Scan Report Signed Patient: Gabbie CoyneMR#: [id number] : 5Acct:[id number] Age/Sex: 73 / FDate of Service: 05/16/19 Loc: ED Accession Number: [id number] Procedure: CT chest abd pel w con Ordering Provider: Dejuan Pedroza D.O. PROCEDURE: CT CHEST ABD PEL W CON INDICATIONS: fall, chest, abdomen pain TECHNIQUE: After the administration of intravenous contrast, 5 mm thick sections acquired from the lung apices to the symphysis. 2.5 mm thick coronal and sagittal reformats were acquired. Additional 7 mm thick coronal maximum intensity projection (MIP) reformats acquired through the lungs. Optional 10-minute delayed imaging may be performed from the kidneys to the bladder. For radiation dose reduction, the following was used: automated exposure control, adjustment of mA and/or kV according to patient size. COMPARISON: None. FINDINGS: Image quality: Excellent. CHEST: Lungs: Patchy groundglass opacities involving the dependent portions of the lower lobes likely representing atelectasis. Focal consolidation involving the anterolateral aspect of the right middle lobe with minimal crowding of the bronchovascular structures. There is also consolidative opacities involving the right lung base. No pleural effusion or pneumothorax. Central and peripheral airways appear patent and normal in caliber. Mediastinum: No mediastinal hematomas. Heart size is normal. Scattered atherosclerotic calcifications of the coronary arteries are noted. No pericardial effusion. T horacic aorta and pulmonary arteries demonstrate normal size and enhancement. No mediastinal or hilar adenopathy. Multiple scattered calcified mediastinal and hilar lymph nodes compatible with sequela of prior granulomatous disease. Esophagus is normal in caliber. No hiatal hernia. Chest wall: No rib fractures. No subcutaneous emphysema. No axillary or supraclavicular adenopathy. Thyroid gland is unremarkable. There is a well-circumscribed, ovoid mass in the central left breast measuring approximately 2.8 x 6.2 cm in transverse dimension with layering hyperdense material. This is subjacent to region of surgical scarring and likely represents a postoperative fluid collection with hematoma most likely. ABDOMEN: Solid organs: Liver is normal in size and enhancement, without lacerations. Gallbladder is unremarkable. Biliary system is non-dilated. Pancreas enhances normally, without transection. Diffuse fatty atrophy of the pancreas. Spleen is normal in size and enhancement, without lacerations. No adrenal hematomas. Both kidneys enhance normally, without hydronephrosis or lacerations. Very small punctate right nephrolith without evidence for obstruction. Peritoneum and bowel: No free fluid or air. Unenhanced bowel loops demonstrate normal wall thickness and caliber. Numerous scattered colonic diverticula without acute diverticulitis. Short segment of minimally distended small bowel in the midabdomen with mild fecalization. There is smooth transition to normal bowel and decompressed bowel distally. No bowel distention proximally. No associated wall thickening or adjacent inflammatory stranding. Nodes and vessels: No retroperitoneal or mesenteric adenopathy. Scattered atherosclerotic calcifications of the abdominal aorta and iliac vessels without aneurysmal dilatation.Aorta and inferior vena cava are normal in size and e nhancement. Miscellaneous: Small fat-containing umbilical hernia without acute inflammation. Adgjz-[id number]-ihxqz hiatal hernia. PELVIS: Genitourinary: Bladder wall thickness is normal. Miscellaneous: No inguinal hernias or adenopathy. Bones: Pelvic ring and hip joints appear intact. No acute vertebral body compression fractures. Multilevel spondylitic changes throughout the imaged spine. IMPRESSION: 1. Right middle lobe and peripheral right lower lobe consolidations. There is suggestion of mild crowding of the associated bronchovascular structures. Findings may represent atelectasis although an infection/pneumonia not excluded. No reactive adenopathy identified. 2. Findings compatible with prior granulomatous disease. 3. Abdomen and pelvis without acute abnormalities. 4. Scattered colonic diverticulosis without acute diverticulitis. 5. Short segment of minimally distended small bowel in the mid upper abdomen and associated fecalization likely representing nonspecific fecal stasis. No evidence for bowel obstruction. 6. Qrhnq-jaszckfh-vmkch hiatal hernia. 7. A 6.2 x 2.8 cm ovoid, well-circumscribed mass with layering high density ma terial in the central left breast subjacent to area of prior surgical change likely representing a hematoma. Recommend correlation with prior surgical history. Consider outpatient evaluation with mammography and sonography. 8. Tiny punctate nonobstructing right nephrolith. Dictated by: Eyal Hickman M.D. on 05/16/2019 at 12:17 Approved by: Eyal Hickman M.D. on 05/16/2019 at 12:39 Chest x-ray: Radiologist's impression: [place] [address] XRay Report Signed Patient: Mariola Coyne#: [id number] : 5Acct:[id number] Age/Sex: 73 / FDate of Service: 05/16/19 Loc: ED Accession Number: [id number] Procedure: XR chest 1V Ordering Provider: Dejuan Pedroza D.O. PROCEDURE: XR CHEST 1V INDICATIONS: fall, trauma TECHNIQUE: One view of the chest was acquired. COMPARISON: None. FINDINGS: Surgical changes and devices: None. Lungs and pleura: Mild pulmonary vascular congestion is seen. Elevation of right hemidiaphragm is seen with blunting of right costophrenic angle suggestive of small right pleural effusion. No definite focal infiltrate. No gross pneumothorax. Mediastinum: Mediastinal contours appear normal. Heart size is enlarged. Bones and chest wall: No suspicious bony lesions. Overlying soft tissues appear unremarkable. IMPRESSION: Cardiomegaly, mild congestion and small right pleural effusion. No definite focal infiltrate or gross pneumothorax. Dictated by: Adonis Rollins M.D. on 05/16/2019 at 11:21 Approved by: Adonis Rollins M.D. on 05/16/2019 at 11:26 Xray Pelvis: Radiologist's impression: [address] [address] XRay Report Signed Patient: Mariola Coyne#: [id number] : 5Acct:[id number] Age/Sex: 73 / FDate of Service: 05/16/19 Loc: ED Accession Number: [id number] Procedure: XR pelvis 1-2V Ordering Provider: Dejuan Pedroza D.O. PROCEDURE: XR PELVIS 1-2V INDICATIONS: fall, trauma TECHNIQUE: 1 view(s) of the pelvis acquired. COMPARISON: [facility], CR, XR HIP W PEL IF DONE RT 2V, 04/17/2019, 11:16. FINDINGS: Bones: No displaced pelvic fractures are appreciated. There are mild to moderate degenerative changes of the pelvic joints. No suspicious osseous lesions are evident. Prominent degenerative changes of the included lower lumbar spine are present. Soft tissues: Visualized bowel gas pattern is normal. There appears to be a large amount stool within the right abdomen. No suspicious soft tissue calcification s. IMPRESSION: No displaced pelvic fractures are appreciated. If there is high clinical concern for an acute fracture, CT is recommended for further evaluation. Dictated by: Alonso Montes M.D. on 05/16/2019 at 10:24 Approved by: Alonso Montes M.D. on 05/16/2019 at 10:25 Discharge Plan Departure Patient Disposition: Admitted as Observation Clinical Impression: Elevated troponin Syncope Qualifiers: Syncope type: unspecified Qualified Code(s): R55 - Syncope and collapse Discharge Date/Time: 05/16/19 14:50 Admit Date/Time: 05/16/19 13:17 Admit Provider: Dylan Salgado
[2019-05-16 11:26] LABS: Troponin I 0.036 ng/mL (0.01-0.034)
[2019-05-16 11:30] LABS: Creatine Kinase MB 4.15 ng/mL (<2.37)
[2019-05-16 11:45] LABS: B Type Natriuretic Peptide 105 (<100)
[2019-05-16 12:49] LABS: HCO3 VBG 25 mmol/L (23-28); Oxygen Saturation VBG 49 % (70-75); PCO2 VBG 42.5 mmHg (45-50); PO2 VBG 27 mmHg (35-45); Total CO2 VBG 26 mmol/L (24-29); pH VBG 7.37 (7.33-7.43)
[2019-05-16 13:02] LABS: Reflexed Lactate in 2 Hours Y
[2019-05-16 13:37] LABS: Lactate 2HR (Lactic Acid Rflx) 1.4 mmol/L (0.7-2.1)
--- NOTE | 2019-05-16 14:12 | PC.NURSE ---
pt reports, has overactive bladder, noted redrash bilateral inguinal area, periarea, between buttocks, lower abdominal folds. cleaned, dried, and protection applied buttocks.
--- NOTE | 2019-05-16 16:03 | PM.HP.1 ---
History of Present Illness History of Present Illness Date Patient Seen: 05/16/19 Time Patient Seen: 16:03 Chief complaint: GLF, on floor 15 hrs Narrative: Ms. Coyne is a 73-year-old female with past medical history hypertension, hyperlipidemia, previous brain aneurysm status post coiling and subsequent lobe surgery after unknown complications, right lung resection and according to the daughter short-term memory loss and probable dementia who presented after a fall where she was found down by her son-in-law. She was down for about 15 hours and weak and dehydrated and brought to the emergency room. She does not remember falling, the last thing she remembers is watching television and then waking up sometime later on the floor with her son-in-law there. She denies any recent fever, chills, chest pain, shortness of breath, palpitations, nausea, vomiting. She does endorse dysuria and urinary frequency. According to the daughter she has multiple falls, and has been quite weak. In the emergency room, her vitals 1 neural for hypertension however she was not febrile. She had a mild WBC count elevation of 12.3 but her CBC was otherwise unremarkable. Her BMP was remarkable for a calcium of 10.4 and a glucose of 173, her lactate was 1.4. Her CK was 208 and initial troponin was 0.036. BNP was 105. She had a CT scan which showed a prior coiling but was unchanged from prior Patient History Medical History Stroke (Acute) Family & Social History Social History: household members friend(s) Prior Living Arrangements House Safety & Behavioral: Feels Safe in Current Yes Environment Been Physically Hurt or No Threatened By a Person Suicidal Ideation Description None Suicide Plan Description No Plan Tobacco & Substance use: Smoking Status Former smoker alcohol intake former alcohol intake frequency holiday/special occasion Substance Use Type does not use Meds Home Medications and Allergies Home Medications Medication Instructions Recorded Confirmed Type atorvastatin 40 mg PO DAILY 02/15/19 05/16/19 History levothyroxine 150 mcg PO DAILY 02/15/19 05/16/19 History losartan 100 mg PO DAILY 02/15/19 05/16/19 History meclizine 25 mg PO TID PRN #10 tab 02/15/19 05/16/19 Rx metoprolol succinate 25 mg PO DAILY 02/15/19 05/16/19 History ondansetron 4 mg PO Q6-8H PRN #10 tab 02/15/19 05/16/19 Rx betamethasone dipropionate 1 applic TOPICAL BID PRN 04/17/19 05/16/19 History lamotrigine 50 mg PO BID 04/17/19 05/16/19 History coal tar [Neutrogena T-Gel] 1 applic TOPICAL QPM PRN 05/16/19 05/16/19 History garlic 1 cap PO DAILY 05/16/19 05/16/19 History multivitamin 1 tab PO DAILY 05/16/19 05/16/19 History oxybutynin chloride 5 mg PO TID 05/16/19 05/16/19 History Allergies Allergy/AdvReac Type Severity Reaction Status Date / Time No Known Drug Allergies Allergy Verified 02/15/19 07:40 Review of Systems Review of Systems Narrative: All other systems reviewed with the patient and are negative unless otherwise stated. Exam Vital Signs (past 8 hours): - 05/16/19 11:02 05/16/19 11:30 05/16/19 12:30 Temperature 97.5 F L Pulse Rate 63 65 68 Respiratory Rate 16 16 23 Blood Pressure 180/78 H Blood Pressure [Right Arm] 178/67 H 179/69 H Pulse Oximetry 97 94 99 05/16/19 13:35 05/16/19 15:50 Temperature 97.6 F Pulse Rate 64 66 Respiratory Rate 20 16 Blood Pressure 166/85 H Blood Pressure [Right Arm] 180/66 H Pulse Oximetry 95 95 Oxygen Delivery Method Room Air Narrative Exam Narrative: GENERAL APPEARANCE: Well developed, well nourished, in no acute distress but slightly groggy. SKIN: Inspection of the skin reveals no rashes, ulcerations or petechiae. HEENT: The sclerae were anicteric and conjunctivae were pink. Extraocular movements were intact and pupils were equal, round with normal accommodation. External inspection of the ears and nose showed no scars, lesions, or masses. Lips, teeth, and gums showed normal mucosa but were quite dry. The oral mucosa was dry, hard and soft palate, tongue and posterior pharynx were unremarkable. NECK: Supple and symmetric. There was no thyroid enlargement, and no tenderness, or masses were felt. CHEST: Normal AP diameter and normal contour without any kyphoscoliosis. LUNGS: Auscultation of the lungs revealed no wheezes, rhonchi, or rales. CARDIOVASCULAR: There was a regular rate and rhythm without any murmurs, gallops, rubs. Peripheral pulses were 2+ and symmetric. ABDOMEN: Soft and nontender with normal bowel sounds. No ascites was noted. MUSCULOSKELETAL: There was no tenderness or effusions noted. Muscle strength and tone were normal. EXTREMITIES: No cyanosis, clubbing or edema. NEUROLOGIC: Alert and oriented x 3. Normal affect. Strength is +5/5 in the upper extremities and approximately +3/5 in the bilateral lower extremities. Objective Labs Result Diagrams: 05/16/19 10:45 05/16/19 10:45 Labs: Laboratory Results - last 24 hr 05/16/19 05/16/19 05/16/19 10:45 10:45 10:45 WBC 12.3 H RBC 5.48 H Hgb 15.8 Hct 48.4 H MCV 88.2 MCH 28.9 MCHC 32.7 RDW 15.0 H Plt Count 223 Neut % (Auto) 92.5 H Lymph % (Auto) 4.1 L [place] % (Auto) 3.2 Eos % (Auto) 0.0 L Baso % (Auto) 0.2 Neut # (Auto) 14197 H Lymph # (Auto) 500 L [place] # (Auto) 400 Eos # (Auto) 0 Baso # (Auto) 0 VBG pH VBG pCO2 VBG pO2 VBG HCO3 VBG Total CO2 VBG O2 Saturation VBG Base Excess Sodium 140 Potassium 3.9 Chloride 103 Carbon Dioxide 23 BUN 19 H Creatinine 0.70 Estimated GFR > 60.0 BUN/Creatinine Ratio 27.1 H Glucose 173 H Lactate 2.5 H Calcium 10.4 H Magnesium 2.0 Total Bilirubin 0.9 AST 30 ALT 22 Alkaline Phosphatase 141 H Total Creatine Kinase 208 H CK-MB (CK-2) 4.15 H CK-MB (CK-2) Rel Index 2.0 Troponin I 0.036 H B-Natriuretic Peptide 105 H Total Protein 8.1 Albumin 4.8 Globulin 3.3 Albumin/Globulin Ratio 1.5 05/16/19 05/16/19 10:51 13:18 WBC RBC Hgb Hct MCV MCH MCHC RDW Plt Count Neut % (Auto) Lymph % (Auto) [place] % (Auto) Eos % (Auto) Baso % (Auto) Neut # (Auto) Lymph # (Auto) [place] # (Auto) Eos # (Auto) Baso # (Auto) VBG pH 7.37 VBG pCO2 42.5 L VBG pO2 27 L VBG HCO3 25 VBG Total CO2 26 VBG O2 Saturation 49 L VBG Base Excess -1.0 L Sodium Potassium Chloride Carbon Dioxide BUN Creatinine Estimated GFR BUN/Creatinine Ratio Glucose Lactate 1.4 Calcium Magnesium Total Bilirubin AST ALT Alkaline Phosphatase Total Creatine Kinase CK-MB (CK-2) CK-MB (CK-2) Rel Index Troponin I B-Natriuretic Peptide Total Protein Albumin Globulin Albumin/Globulin Ratio Assessment & Plan Assessment & Plan narrative: Ms. Coyne is a 73-year-old female with past medical history hypertension, hyperlipidemia, previous brain aneurysm status post coiling and subsequent lobe surgery after unknown complications, right lung resection and according to the daughter short-term memory loss and probable dementia who presented after a fall where she was found down by her son-in-law and was on the floor for approximately 15 hours, she was admitted to medicine for further evaluation and elevated troponin. 1. Fall, given history concern for possible seizure. However, her CK was only mildly elevated but she appeared very dehydrated. There are no apparent tongue lacerations are bite lee on my exam. She does endorse dysuria and urinary frequency so her recent weakness that she complains of could be secondary to urinary tract infection. She does appear to be weak in her bilateral lower extremities but she still has sensation and has no localizing signs or back pain. -will check a lamotrigine level, will try an add on to this morning to see if patient has been compliant on this therapy -will continue hydration with normal saline -patient was retaining 900 cc of urine, will place a Calle catheter at this time, and urine is sent for UA and possible culture. -PT/OT eval -check TSH 2. Elevated troponin -likely related to a type II HI but will continue to trend. 3. HTN, chronic, present on admission - continue home metoprolol, will give dose tonight as she missed her usual dose. 4. HLD, chronic - continue home lipitor 5. H/o brain aneurysm with seizure disorder - continue lamictal, follow up level as noted above. 6. hypothyroidism, chronic - - check TSH - continue home levothyroxine 150 mcg 7. Elevated glucose, present on amission, could be reactive. - check A1c. Dispo: Patient is admitted under observation status given stay is unlikely to exceed 2 midnights. Code: DNR Quality VTE Deep Vein Thrombosis/Pulmonary Embolism Present on Admission: No
[2019-05-16] MEDS: SODIUM CHLORIDE 0.9% 1,000 ML 100 ML IV (16:15)
[2019-05-16] MEDS: ACETAMINOPHEN 325 MG TABLET 650 MG PO ×2 (16:18→22:36)
[2019-05-16 17:33] LABS: Appearance Urine UA CLOUDY; Bilirubin Urine UA NEGATIVE (NEGATIVE); Color Urine UA YELLOW; Glucose Urine UA NEGATIVE (Negative); Ketones Urine UA NEGATIVE (NEGATIVE); Leukocyte Esterase Urine UA 2+ (NEGATIVE); Nitrite Urine UA NEGATIVE (Negative); Occult Blood Urine UA 2+ (Negative); Protein Urine UA 1+ (Negative); Specific Gravity Urine UA 1.015 (1.000-1.035); Urobilinogen Urine UA 0.2 E.U./dL (0.2)
[2019-05-16 17:45] LABS: Bacteria Urine Many (>30); RBC Urine 5-10/HPF (0-5/HPF); WBC Urine 5-10/HPF (0-5/HPF)
[2019-05-16 17:46] LABS: Culture Indicated Urine Specimen Cultured
[2019-05-16 18:27] LABS: Troponin I 0.038 ng/mL (0.01-0.034)
[2019-05-16] MEDS: lamoTRIgine 25 MG CHEW TABLET 50 MG PO (20:27)
[2019-05-16] MEDS: NYSTATIN POWDER 15GM 1 APPLIC TOP (20:27)
[2019-05-16] MEDS: OXYBUTYNIN 5 MG TABLET PO (20:27)
[2019-05-17] VITALS (8 sets, daily range): BP systolic 136–152; BP diastolic 69–106; PULSE 73–88; RESP 14–20; TEMP 36.1–37.2; O2SAT 95–99
[2019-05-17] MEDS: SODIUM CHLORIDE 0.9% 1,000 ML 100 ML IV ×2 (01:00→11:26)
[2019-05-17] MEDS: CEFTRIAXONE 1 GM/50 ML FROZ.PIGGY IV (01:35)
[2019-05-17 03:28] LABS: Add Manual Diff / Slide Review NO; Basophils Absolute Auto 0 /uL (0-100); Basophils Percent Auto 0.5 % (0-2); Eosinophils Absolute Auto 100 /uL (0-450); Hematocrit 40.5 % (36-46); Hemoglobin 13.5 g/dL (12.0-16.0); Lymphocytes Absolute Auto 1300 /uL (1100-4500); Lymphocytes Percent Auto 15.3 % (25-40); Mean Corpuscular HGB Conc 33.4 % (30-36); Mean Corpuscular Hemoglobin 29.3 PG (26-34); Mean Corpuscular Volume 87.6 fL (80-100); Monocytes Absolute Auto 800 /uL (0-900); Monocytes Percent Auto 8.8 % (3-14); Neutrophils Absolute Auto 6400 /uL (1500-7000); Neutrophils Percent Auto 74.4 % (50-75); Platelet Count 178 X10^3/uL (150-400); Red Blood Cell Count 4.62 X10^6/uL (4.0-5.2); Red Cell Distribution Width 15.3 % (11.6-14.8); White Blood Cell Count 8.6 X10^3/uL (4.5-11.0)
[2019-05-17 03:33] LABS: BUN Creatinine Ratio 27.1 (6-22); Blood Urea Nitrogen 19 mg/dL (7-17); Calcium 9.8 mg/dL (8.4-10.2); Carbon Dioxide 24 mmol/L (22-32); Chloride 107 mmol/L (98-107); Estimated Glomerular Filt Rate > 60.0 mL/min (>60); Glucose 118 mg/dL (80-110); HEMOLYSIS < 15 (0-50); Magnesium 2.1 mg/dL (1.6-2.3); Potassium 3.7 mmol/L (3.4-5.1); Sodium 140 mmol/L (137-145)
[2019-05-17 03:41] LABS: Hemoglobin A1C% w Est Avg Glu 5.2 % (4.0-6.0)
[2019-05-17 03:45] LABS: Troponin I 0.034 ng/mL (0.01-0.034)
[2019-05-17 04:15] LABS: TSH w/ Reflex to FT4 4.15 uIU/mL (0.47-4.68)
[2019-05-17] MEDS: LEVOTHYROXINE 150 MCG TABLET PO (05:40)
[2019-05-17] MEDS: ATORVASTATIN 20 MG TABLET 40 MG PO (08:38)
[2019-05-17] MEDS: LOSARTAN 50 MG TABLET 100 MG PO (08:38)
[2019-05-17] MEDS: MULTIVITAMIN 1 TABLET 1 TAB PO (08:38)
[2019-05-17] MEDS: METOPROLOL ER 25 MG TABLET PO (08:38)
[2019-05-17] MEDS: lamoTRIgine 25 MG CHEW TABLET 50 MG PO ×2 (08:39→21:28)
[2019-05-17] MEDS: OXYBUTYNIN 5 MG TABLET PO ×3 (08:39→21:28)
[2019-05-17] MEDS: ENOXAPARIN 40 MG/0.4 ML SYRINGE SUBCUT (08:40)
--- NOTE | 2019-05-17 10:06 | PT.IIE ---
Medical History (Last Reviewed 05/16/19 @ 11:26 by Dejuan Pedroza DO) Stroke (Acute) Physical Therapy Inpatient Evaluation/Re-Eval M1 PT/OT-IP Prior Functional Status Start: 05/17/19 13:00 Freq: NEEDED Status: Active Protocol: Document 05/17/19 10:06 AB (Rec: 05/17/19 13:26 [id number]) Medical Review Prior Functional Status Medical History Reviewed Yes Communication able to make needs known Mobility and Gait pt stated that she is modified independent with all mobilities and ambulation without AD indoors but uses a SPC/4WW for outdoor mobility depending on the distance she has to walk. Social History Living Arrangements House Number of Floors (Floors) One Floor Number of Stairs To Enter/Railing? no steps to enter Home Environment High Toilet,Walk in Shower Home Equipment Four Wheel Walker,Straight Cane,Shower Seat with Backrest ,Hand Held Shower,Grab Bars Near Toilet,Grab Bars In Shower Additional Social History Comment pt stated that she lives in a mother/daughter house but daughter is usually not home. stated that she used to have caregivers that comes in to assist her but she stopped it. M2 PT-IP Current Condition Start: 05/17/19 13:00 Freq: NEEDED Status: Active Protocol: Document 05/17/19 10:06 AB (Rec: 05/17/19 13:26 [id number]) Physical Therapy Current Condition Current Condition Evaluation Date 05/17/19 Treatment Diagnosis GLF; difficulty in walking Onset Date 05/16/19 Precautions Other Precautions falls M3 PT-IP Subjective Start: 05/17/19 13:00 Freq: NEEDED Status: Active Protocol: Document 05/17/19 10:06 AB (Rec: 05/17/19 13:26 [id number]) Subjective Physical Therapy Visit Type Type Initial Evaluation Visit Start Time 10:06 Visit Stop Time 10:47 Total Visit Minutes 41 Number of FUR STYLIST Visits 0 Physical Therapy Visit Comments Patient Comments pt agreeable to do PT M4 PT-IP Mobility and Gait Start: 05/17/19 13:00 Freq: NEEDED Status: Active Protocol: Document 05/17/19 10:06 AB (Rec: 05/17/19 13:26 [id number]) PT-Bed Mobility Assessment Supine to Sit Supine to Sit Maximum Assistance,1 Person Assistance,Head of Bed Elevated,Bedrails Scooting Scooting to Edge of Bed Maximum Assistance Scooting Up and Down in Bed Maximum Assistance PT-Transfer Assessment Sit to and From Stand Sit to and from Stand Maximum Assistance,1 Person Assistance,2 Person Assistance ,Use of Upper Extremities Equipment Transfer Assistive Device Gait Belt,Front Wheeled Walker Orthotic/Prosthetic Devices or Brace: No Transfers Transfer Destination Chair Transfer Technique Stand Step Pivot Transfer Ability Level of Assist Maximum Assistance,1 Person Assistance,2 Person Assistance ,Use of Upper Extremities Gait Assessment Gait Gait Assistance Required: Moderate Assistance,1 Person Assist,2 Person Assist Distance (Feet) 6 Assistive Devices Assistive Device Gait Belt,Front Wheeled Walker Orthotic/Prosthetic Devices or Brace: No Gait Deviations General Gait Pattern Antalgic,Decreased Stride Length,Decreased Feet Clearance,Step-to Gait Factors Limiting Gait Function Factors Limiting Gait Function Decreased Activity Tolerance, Decreased Strength,Limited Range of Motion,Poor Balance, Poor Safety Awareness Comments Gait Comments completed sit to stand from the chair mod A x 2 to max A x 2 and max cues and was able to take ~ 6 steps using FWW mod A x 2 and cues with chair follow. PT-Balance Assessment Sitting Balance and Reactions Static Sitting Balance Ability Good Dynamic Sitting Balance Ability Fair Standing Balance and Reactions Static Standing Balance Ability Poor Dynamic Standing Balance Ability Poor Device Used FWW M5 PT-IP Objective Assessments Start: 05/17/19 13:00 Freq: NEEDED Status: Active Protocol: Document 05/17/19 10:06 (Rec: 05/17/19 13:26 [id number]) Orientation Orientation/Cognition Level of Alertness Alert Orientation Name,Place,Situation Language Function Ability Hard of Hearing Safety Awareness Decreased Safety Awareness Gross Range of Motion Lower Extremity ROM Assessment Within Functional Limits Strength Lower Extremity Strength Assessment Bilaterally Impaired Comments Strength Comments RLE : 3+/5 LLE: 4-/5 Coordination Assessment Gross Coordination Gross Coordination WNL Muscle Tone Muscle Tone WNL Yes M6 PT-IP Treatment Start: 05/17/19 13:00 Freq: NEEDED Status: Active Protocol: Document 05/17/19 10:06 AB (Rec: 05/17/19 13:26 [id number]) Physical Therapy Treatment Education Education Provided Safety M7 PT-IP Assessment and Plan Start: 05/17/19 13:00 Freq: NEEDED Status: Active Protocol: Document 05/17/19 10:06 AB (Rec: 05/17/19 13:26 AB [id number]) PT Summary Assessment and Plan Potential Rehabilitation Potential Fair Status of Condition at Evaluation Stable Summary Impairments ROM,Strength,Balance, Coordination,Sensation,Tone, Cognition,Bed Mobility, Transfers,Gait,Activity Tolerance Assessment Summary pt requiring mod A x 2 to max A x 2 with mobility and unable to tolerate much activity. pt does not have assistance at home and needs to be more independent to d/c home. pt will need SNF rehab to improve strenght and function. Goals Transfer Goal Contact Guard Assistance,Front Wheeled Walker Gait Goal Contact Guard Assistance,Front Wheel Walker Gait Distance 6 Days to Meet Goals 10 Frequency of Treatment Frequency Of Treatment Once a Day Treatment Plan Physical Therapy Treatment Plan Bed Mobility Training,Transfer Training,Gait Training, Therapeutic Exercise,Balance Retraining,Post Op Education, Discharge Planning,Hot or Cold Pack,Neuromuscular Re-ed, Coordination Retraining,Manual Therapy Other Recommendations and Next Treatment transfers, ambulation Focus Recommendations To Nursing Amount of Assist Needed 2 Person Assist Discharge Recommendations PT Discharge Recommendations SNF Rehab
[2019-05-17] MEDS: NYSTATIN POWDER 15GM 1 APPLIC TOP ×2 (11:26→21:28)
--- NOTE | 2019-05-17 15:09 | CM.IDA ---
Initial DCP Assessment Note: Pt is a 73 yo female, resident of [place]. Pt here after GLF, found by family after being down for approx 15 hours, pt w/UTI and generalized weakness PCP: Unknown Payer: Medicare/[facility] Reviewed chart. According to H+P Narrative : previous brain aneurysm status post coiling and subsequent lobe surgery after unknown complications, right lung resection and according to the daughter short-term memory loss and probable dementia who presented after a fall where she was found down by her son-in-law. She was down for about 15 hours and weak and dehydrated and brought to the emergency room. Obs vs Inpt status still pending. EHR has been consulted Met w/pt, explained role. Pt lives in a mother in law suite next to her dtr/BETTY Loydna, who works as an sports attorney P# [phone] and son in law Juan Miguel P# [phone], pt states he is on disability and can help sometimes. Pt describes her family as being busy a lot. Pt feels she can do most things on her own. She uses a lift recliner at home to get up/down, she can toilet and bathe indp and heats up frozen meals in her microwave (no stove or clothes washer/dryer in MIL house). Pt has h/o SNF stay in [place] and states she and her dtr have been looking at physical therapy centers here. This YARD SPECIALIST inquires further and pt unable to elaborate. Pt states her dtr hired a private cg to assist around the home but pt asked cg not come anymore because she felt she was getting paid for things she wasn't doing, and I didn't need the help. PT recommending SNF, pt requiring mod-max assist of two. Pt seems to lack insight today on her functional limitations and feels she will be able to return home. This YARD SPECIALIST needs to chk in w/pt's family, hoping to obtain more information about obs vs inpt before presenting options to family. Kierra Morales YARD SPECIALIST Discharge Planning/Care Management Advanced directive, confirm from FAMILY Start: 05/16/19 15:36 Freq: Q24H Status: Active Protocol: Document 05/16/19 15:36 AGW (Rec: 05/16/19 17:48 AGW [id number]) Advance Directive, confirm on record Time 16:15 Person contacted maria teresa chinchilla Copy received No CM Discharge Assessment Start: 05/17/19 14:57 Freq: Status: Active Protocol: Document 05/17/19 14:57 NEO (Rec: 05/17/19 15:09 NEO [id number]) Discharge Planning Assessment Assigned Deputy Sheriff Bailiff GINI Arreguin DPOA/Assigned Designee Name Maria Teresa Chinchilla, dtr Juan Miguel Chinchilla , son in law Contact Information Maria Teresa: [phone] Juan Miguel: Advance Directives? Yes History Provided By Patient,Medical Record Prior Living Arrangements House Household Members family Comment Mother in law suite, dtr/ANDREA live in the big house Independent with ADL's Yes: Mod indp Per pt report Is patient alert and oriented? Yes: Likely dementia, previous brain aneurysm status subsequent lobe surgery Needs Assistance With Meal Prep,Managing Medications ,Home Chores / Shopping Comment H/o in-home caregiver but felt she didn't need this service Patient/Family Preference [facility] Barriers to Discharge Yes Comment Lives in mother in law suite alone, found down for a long period of time, pt states her family is busy a lot, fall risk Discharge Plan [facility] Additional Comment Pending determination about status, need to discuss DCP w/ dtr/DPOA Maria Teresa Review Status In Process
--- NOTE | 2019-05-17 16:51 | OT.IP.EVAL ---
Past Medical History (Last Reviewed 05/16/19 @ 11:26 by Dejuan Pedroza DO) Stroke (Acute) Occupational Therapy Inpatient Evaluation/Re-Eval M1 PT/OT-IP Prior Functional Status Start: 05/17/19 16:32 Freq: NEEDED Status: Active Protocol: Document 05/17/19 16:33 [facility] (Rec: 05/17/19 16:51 [facility] [id number]) Medical Review Prior Functional Status Medical History Reviewed Yes Communication able to make needs known Mobility and Gait Per PT eval: pt stated that she is modified independent with all mobilities and ambulation without AD indoors but uses a SPC/4WW for outdoor mobility depending on the distance she has to walk. Activities of Daily Living and IADL's Pt states able to do all ADl's and IADL's at home. Pt's daughter assist with finances and driving needs per pt. Prior Functional Level (Other details) Pt state has a lift chair and has had 6 falls in the past month and feels mainly just her legs given out from her. Social History Household Members none Living Arrangements House Number of Floors (Floors) One Floor Number of Stairs To Enter/Railing? no steps to enter Home Environment High Toilet,Walk in Shower Home Equipment Four Wheel Walker,Straight Cane,Shower Seat with Backrest ,Hand Held Shower,Grab Bars Near Toilet,Grab Bars In Shower Additional Social History Comment Pt states her daughter lives in the big house and that she lives in the little house on the property. Pt states uses a lift chair at home. M2 OT-IP Current Condition Start: 05/17/19 16:32 Freq: Status: Active Protocol: Document 05/17/19 16:33 [facility] (Rec: 05/17/19 16:51 [facility] [id number]) Occupational Therapy Current Condition Current Condition Evaluation Date 05/17/19 Treatment Diagnosis GLF, dehydration Diagnosis Onset Date 05/16/19 Weight Bearing Status Weight Bearing Status Weight Bear as Tolerated M3 OT- IP Subjective and Pain Start: 05/17/19 16:32 Freq: Status: Active Protocol: Document 05/17/19 16:33 [facility] (Rec: 05/17/19 16:51 [facility] [id number]) OT- Subjective Occupational Therapy Visit Type Type Initial Evaluation Visit Start Time 14:47 Visit Stop Time 15:18 Total Visit Minutes 31 Occupational Therapy Visit Comments Patient Comments Pt willing to get up and realizes that if would be best for her to go to skilled rehab prior to going home. Patient/Caregiver Goals To go to skilled rehab to get stronger and go home. OT Pain Assessment Pain When Pain Assessed At Rest Pain Present Pain Present Denied Pain M4 OT- IP ADL's Start: 05/17/19 16:32 Freq: Status: Active Protocol: Document 05/17/19 16:33 [facility] (Rec: 05/17/19 16:51 [facility] [id number]) OT ADL-Dressing General Eval Lower Body Dressing Ability Total Assistance Areas Needing Assistance Socks OT ADL-Toileting Comments OT Toileting Comments Pt has cyr in and states wears pads at home. M5 OT- IP IADL's Start: 05/17/19 16:32 Freq: Status: Active Protocol: Document 05/17/19 16:33 [facility] (Rec: 05/17/19 16:51 [facility] [id number]) OT-Instrumental Activities of Daily Living Home Safety Awareness Ability to Problem Solve Emergency Unable to Problem Solve Situations Home Safety Comments Pt unable to state to call 911 if having chest pain at home. Pt states, I would wait awhile and then hold my chest. Money Management Money Management Caregiver Provides Assistance Driving Driving Caregiver Provides Assist M6 OT- IP Functional Cognition Start: 05/17/19 16:32 Freq: Status: Active Protocol: Document 05/17/19 16:33 [facility] (Rec: 05/17/19 16:51 [facility] [id number]) OT- Vision and Hearing OT- Hearing Assessment OT- Hearing Assessment WFL OT- Vision Assessment Visual Acuity Glasses All The Time Visual Attentiveness WFL Occular Pursuits WFL Visual Convergence WFL Visual Morales WFL Vision Assessment Comments Pt able to read the clock. M7 OT- IP Mobility and Balance Start: 05/17/19 16:32 Freq: Status: Active Protocol: Document 05/17/19 16:33 [facility] (Rec: 05/17/19 16:51 [facility] [id number]) OT-Transfer Assessment Sit to and From Stand Sit to and from Stand Maximum Assistance,1 Person Assistance Comments Mobility Comments Pt needing MAX A to help scoot the the edge of the recliner and MAX A X 1 to stand to FWW. Pt able to stand for 2minutes and O2 on RA to 92%. Once standing on her feet and use of FWW MODA to stand for balance. OT- Balance Assessment Sitting Balance and Reactions Static Sitting Balance Ability Good Dynamic Sitting Balance Ability Fair Standing Balance and Reactions Static Standing Balance Ability Poor Dynamic Standing Balance Ability Poor M8 OT- IP Objective Assessments Start: 05/17/19 16:32 Freq: Status: Active Protocol: Document 05/17/19 16:33 [facility] (Rec: 05/17/19 16:51 [facility] [id number]) OT Gross Range of Motion Upper Extremity Range of Motion ROM Impairments RUE 0-90, LUE 0-100 shoulder flexion. OT Strength Comments Strength Comments BUE 4-/5 OT-Muscle Tone Assessment Muscle Tone WNL Yes M9 OT- IP Assessment and Plan Start: 05/17/19 16:32 Freq: Status: Active Protocol: Document 05/17/19 16:33 [facility] (Rec: 05/17/19 16:51 [facility] [id number]) OT Summary Assessment and Plan Potential Rehabilitation Potential Good Analytic Complexity at Evaluation Low Summary OT Impairments Range of Motion,Strength, Balance,Functional Cognition, Functional Mobility,Grooming, Dressing,Toileting,Bathing, Toilet Transfers,Shower Transfers Progress Towards Goals Slow Progress due to Medical Issues,Slow Progress due to Activity Tolerance,Slow Progress due to Cognition Assessment Summary Pt low complexity and barriers are frequent falls, decreased strength BLE> BUE, activity tolerance, and now needing extensive assist for ADL's and functional mobility. Pt far from baseline as prior KENRICK with all ADL and functional mobility needs with 4ww/SPC outside. Pt will benefit from skilled rehab. Goals Grooming Goal Standby Assistance Dressing Goal Minimal Assistance Toileting Goal Minimal Assistance Bathing Goal Moderate Assistance Toilet Transfer Goal Minimal Assistance Shower Transfer Goal Moderate Assistance Patient/Caregiver Education Goal Caregiver Independent Assisting Patient OT-Other Goals Grooming goal while standing. Days to Meet Goals 7 Frequency of Treatment Frequency Of Treatment Once a Day Treatment Plan OT Treatment Plan ADL Training,Functional Cognition Training,Functional Mobility,Patient/Family Education,Discharge Planning Other Treatment Recommendations and Next SLUMs , transfer to [facility] [place] Focus Discharge Recommendations OT Discharge Recommendations SNF Rehab Home Equipment Needs [facility]
[2019-05-17] MEDS: ACETAMINOPHEN 325 MG TABLET 650 MG PO (21:28)
--- NOTE | 2019-05-17 21:34 | P.PN_ITS ---
Subjective Subjective Date Patient Seen: 05/17/19 Time Patient Seen: 09:45 Interval history: Ms. Coyne is a 73-year-old female with past medical history hypertension, hyperlipidemia, previous brain aneurysm status post coiling and subsequent lobe surgery after unknown complications, right lung resection and according to the daughter short-term memory loss and probable dementia who presented after a fall where she was found down by her son-in-law. Her UA was positive for UTI and she was started on ceftriaxone. She is pending cultures. Her grogginess has improved slightly today and her mentation is slightly better. Exam Vital Signs (past 8 hours): - 05/17/19 15:35 05/17/19 19:50 Temperature 97.4 F L 97.4 F L Pulse Rate 73 88 Respiratory Rate 18 18 Blood Pressure 147/106 H 147/77 H Pulse Oximetry 98 99 Fraction of Inspired Oxygen 21 Oxygen Delivery Method Room Air Oxygen Flow Rate 0 Narrative Exam Narrative: GENERAL APPEARANCE: Well developed, well nourished, in no acute distress but slightly groggy. SKIN: Inspection of the skin reveals no rashes, ulcerations or petechiae. HEENT: The sclerae were anicteric and conjunctivae were pink. Extraocular movements were intact and pupils were equal, round with normal accommodation. External inspection of the ears and nose showed no scars, lesions, or masses. Lips, teeth, and gums showed normal mucosa but were quite dry. The oral mucosa w as dry, hard and soft palate, tongue and posterior pharynx were unremarkable. NECK: Supple and symmetric. There was no thyroid enlargement, and no tenderness, or masses were felt. CHEST: Normal AP diameter and normal contour without any kyphoscoliosis. LUNGS: Auscultation of the lungs revealed no wheezes, rhonchi, or rales. CARDIOVASCULAR: There was a regular rate and rhythm without any murmurs, g allops, rubs. Peripheral pulses were 2+ and symmetric. ABDOMEN: Soft and nontender with normal bowel sounds. No ascites was noted. MUSCULOSKELETAL: There was no tenderness or effusions noted. Muscle strength and tone were normal. EXTREMITIES: No cyanosis, clubbing or edema. NEUROLOGIC: Alert and oriented x 3. Normal affect. Strength is +5/5 in the upper extremities and approximately +3/5 in the bilateral lower extremities. Objective Labs Result Diagrams: 05/17/19 03:09 05/17/19 03:09 Labs: Laboratory Results - last 24 hr 05/17/19 05/17/19 05/17/19 03:09 03:09 03:09 WBC 8.6 RBC 4.62 Hgb 13.5 Hct 40.5 MCV 87.6 MCH 29.3 MCHC 33.4 RDW 15.3 H Plt Count 178 Neut % (Auto) 74.4 Lymph % (Auto) 15.3 L [place] % (Auto) 8.8 Eos % (Auto) 1.0 L Baso % (Auto) 0.5 Neut # (Auto) 6400 Lymph # (Auto) 1300 [place] # (Auto) 800 Eos # (Auto) 100 Baso # (Auto) 0 Sodium Potassium Chloride Carbon Dioxide BUN Creatinine Estimated GFR BUN/Creatinine Ratio Glucose Hemoglobin A1c 5.2 Calcium Magnesium Troponin I TSH 4.15 05/17/19 05/17/19 03:09 03:09 WBC RBC Hgb Hct MCV MCH MCHC RDW Plt Count Neut % (Auto) Lymph % (Auto) [place] % (Auto) Eos % (Auto) Baso % (Auto) Neut # (Auto) Lymph # (Auto) [place] # (Auto) Eos # (Auto) Baso # (Auto) Sodium 140 Potassium 3.7 Chloride 107 Carbon Dioxide 24 BUN 19 H Creatinine 0.70 Estimated GFR > 60.0 BUN/Creatinine Ratio 27.1 H Glucose 118 H Hemoglobin A1c Calcium 9.8 Magnesium 2.1 Troponin I 0.034 TSH Assessment & Plan Assessment & Plan narrative: Ms. Coyne is a 73-year-old female with past medical history hypertension, hyperlipidemia, previous brain aneurysm status post coiling and subsequent lobe surgery after unknown complications, right lung resection and according to the daughter short-term memory loss and probable dementia who presented after a fall where she was found down by her son-in-law and was on the floor for approximately 15 hours, she was admitted to medicine for further evaluation and elevated troponin. 1. Fall, given history concern for possible seizure. However, her CK was only mildly elevated but she appeared very dehydrated. There are no apparent tongue lacerations are bite lee on my exam. She does endorse dysuria and urinary frequency so her recent weakness that she complains is likely secondary to urinary tract infection. She was very cloudy She does appear to be weak in her bilateral lower extremities but she still has sensation and has no localizing signs or back pain. -Lamotrigine level pending -will continue hydration with normal saline -patient was retaining 900 cc of urine, Calle catheter was placed and urine was + for UTI as noted below. -PT/OT -TSH is unremarkable. 2. Elevated troponin -likely related to a type II MN. Downtrended and resolved. 3. toxic metabolic encephalopathy, acute present on admission - patient with weakness and fatigue with clearer mentation this morning compared to day prior. This is likely secondary to her UTI. - continue ceftriaxone as noted below. 4. UTI, acute, present on admission - possibly secondary to urinary retention given high volume on bladder scan. - continue ceftriaxone pending urine culture. 3. HTN, chronic, present on admission - continue home metoprolol 4. HLD, chronic - continue home lipitor 5. H/o brain aneurysm with seizure disorder - continue lamictal, follow up level as noted above. 6. hypothyroidism, chronic - - TSH is uncremarkable - continue home levothyroxine 150 mcg 7. Elevated glucose, present on amission, most likely reactive given a1c of 5.2 . Dispo: Patient is admitted under observation status at this time. Code: DNR Quality VTE Deep Vein Thrombosis/Pulmonary Embolism Present on Admission: No
--- NOTE | 2019-05-17 21:43 | PM.HP.1 ---
History of Present Illness History of Present Illness Chief complaint: GLF, on floor 15 hrs Narrative: Ms. Coyne is a 73-year-old female with past medical history hypertension, hyperlipidemia, previous brain aneurysm status post coiling and subsequent lobe surgery after unknown complications, right lung resection and according to the daughter short-term memory loss and probable dementia who presented after a fall where she was found down by her son-in-law. She was down for about 15 hours and weak and dehydrated and brought to the emergency room. She does not remember falling, the last thing she remembers is watching television and then waking up sometime later on the floor with her son-in-law there. She denies any recent fever, chills, chest pain, shortness of breath, palpitations, nausea, vomiting. She does endorse dysuria and urinary frequency. According to the daughter she has multiple falls, and has been quite weak. In the emergency room, her vitals 1 neural for hypertension however she was not febrile. She had a mild WBC count elevation of 12.3 but her CBC was otherwise unremarkable. Her BMP was remarkable for a calcium of 10.4 and a glucose of 173, her lactate was 1.4. Her CK was 208 and initial troponin was 0.036. BNP was 105. She had a CT scan which showed a prior coiling but was unchanged from prior Patient History Medical History Stroke (Acute) Family & Social History Social History: household members none Prior Living Arrangements House Safety & Behavioral: Feels Safe in Current Yes Environment Been Physically Hurt or No Threatened By a Person Suicidal Ideation Description None Suicide Plan Description No Plan Tobacco & Substance use: Smoking Status Former smoker alcohol intake former alcohol intake frequency holiday/special occasion Substance Use Type does not use Meds Home Medications and Allergies Home Medications Medication Instructions Recorded Confirmed Type atorvastatin 40 mg PO DAILY 02/15/19 05/16/19 History levothyroxine 150 mcg PO DAILY 02/15/19 05/16/19 History losartan 100 mg PO DAILY 02/15/19 05/16/19 History meclizine 25 mg PO TID PRN #10 tab 02/15/19 05/16/19 Rx metoprolol succinate 25 mg PO DAILY 02/15/19 05/16/19 History ondansetron 4 mg PO Q6-8H PRN #10 tab 02/15/19 05/16/19 Rx betamethasone dipropionate 1 applic TOPICAL BID PRN 04/17/19 05/16/19 History lamotrigine 50 mg PO BID 04/17/19 05/16/19 History coal tar [Neutrogena T-Gel] 1 applic TOPICAL QPM PRN 05/16/19 05/16/19 History garlic 1 cap PO DAILY 05/16/19 05/16/19 History multivitamin 1 tab PO DAILY 05/16/19 05/16/19 History oxybutynin chloride 5 mg PO TID 05/16/19 05/16/19 History Allergies Allergy/AdvReac Type Severity Reaction Status Date / Time No Known Drug Allergies Allergy Verified 02/15/19 07:40 Exam Vital Signs (past 8 hours): - 05/17/19 15:35 05/17/19 19:50 Temperature 97.4 F L 97.4 F L Pulse Rate 73 88 Respiratory Rate 18 18 Blood Pressure 147/106 H 147/77 H Pulse Oximetry 98 99 Fraction of Inspired Oxygen 21 Oxygen Delivery Method Room Air Oxygen Flow Rate 0 Objective Labs Result Diagrams: 05/17/19 03:09 05/17/19 03:09 Labs: Laboratory Results - last 24 hr 05/17/19 05/17/19 05/17/19 03:09 03:09 03:09 WBC 8.6 RBC 4.62 Hgb 13.5 Hct 40.5 MCV 87.6 MCH 29.3 MCHC 33.4 RDW 15.3 H Plt Count 178 Neut % (Auto) 74.4 Lymph % (Auto) 15.3 L [place] % (Auto) 8.8 Eos % (Auto) 1.0 L Baso % (Auto) 0.5 Neut # (Auto) 6400 Lymph # (Auto) 1300 [place] # (Auto) 800 Eos # (Auto) 100 Baso # (Auto) 0 Sodium Potassium Chloride Carbon Dioxide BUN Creatinine Estimated GFR BUN/Creatinine Ratio Glucose Hemoglobin A1c 5.2 Calcium Magnesium Troponin I TSH 4.15 05/17/19 05/17/19 03:09 03:09 WBC RBC Hgb Hct MCV MCH MCHC RDW Plt Count Neut % (Auto) Lymph % (Auto) [place] % (Auto) Eos % (Auto) Baso % (Auto) Neut # (Auto) Lymph # (Auto) [place] # (Auto) Eos # (Auto) Baso # (Auto) Sodium 140 Potassium 3.7 Chloride 107 Carbon Dioxide 24 BUN 19 H Creatinine 0.70 Estimated GFR > 60.0 BUN/Creatinine Ratio 27.1 H Glucose 118 H Hemoglobin A1c Calcium 9.8 Magnesium 2.1 Troponin I 0.034 TSH Quality VTE Deep Vein Thrombosis/Pulmonary Embolism Present on Admission: No
[2019-05-18] VITALS (11 sets, daily range): BP systolic 123–176; BP diastolic 57–86; PULSE 60–68; RESP 14–20; TEMP 35.9–37.2; O2SAT 94–98
[2019-05-18] MEDS: CEFTRIAXONE 1 GM/50 ML FROZ.PIGGY IV (01:30)
[2019-05-18] MEDS: ACETAMINOPHEN 325 MG TABLET 650 MG PO ×3 (03:18→20:14)
[2019-05-18] MEDS: LEVOTHYROXINE 150 MCG TABLET PO (05:23)
[2019-05-18 05:54] LABS: Add Manual Diff / Slide Review NO; Basophils Absolute Auto 0 /uL (0-100); Basophils Percent Auto 0.5 % (0-2); Eosinophils Absolute Auto 200 /uL (0-450); Eosinophils Percent Auto 3.4 % (2-4); Hematocrit 39.8 % (36-46); Hemoglobin 13.1 g/dL (12.0-16.0); Lymphocytes Absolute Auto 1300 /uL (1100-4500); Lymphocytes Percent Auto 20.2 % (25-40); Mean Corpuscular Hemoglobin 29.2 PG (26-34); Mean Corpuscular Volume 88.4 fL (80-100); Monocytes Absolute Auto 600 /uL (0-900); Monocytes Percent Auto 9.1 % (3-14); Neutrophils Absolute Auto 4200 /uL (1500-7000); Neutrophils Percent Auto 66.8 % (50-75); Platelet Count 170 X10^3/uL (150-400); Red Cell Distribution Width 15.3 % (11.6-14.8); White Blood Cell Count 6.3 X10^3/uL (4.5-11.0)
[2019-05-18 06:01] LABS: BUN Creatinine Ratio 21.3 (6-22); Blood Urea Nitrogen 17 mg/dL (7-17); Calcium 9.5 mg/dL (8.4-10.2); Carbon Dioxide 26 mmol/L (22-32); Chloride 110 mmol/L (98-107); Estimated Glomerular Filt Rate > 60.0 mL/min (>60); Glucose 102 mg/dL (80-110); HEMOLYSIS < 15 (0-50); Magnesium 2.1 mg/dL (1.6-2.3); Potassium 3.9 mmol/L (3.4-5.1); Sodium 140 mmol/L (137-145)
[2019-05-18] MEDS: ATORVASTATIN 20 MG TABLET 40 MG PO (09:46)
[2019-05-18] MEDS: ENOXAPARIN 40 MG/0.4 ML SYRINGE SUBCUT (09:46)
[2019-05-18] MEDS: lamoTRIgine 25 MG CHEW TABLET 50 MG PO ×2 (09:47→20:16)
[2019-05-18] MEDS: LOSARTAN 50 MG TABLET 100 MG PO (09:47)
[2019-05-18] MEDS: METOPROLOL ER 25 MG TABLET PO (09:48)
[2019-05-18] MEDS: MULTIVITAMIN 1 TABLET 1 TAB PO (09:49)
[2019-05-18] MEDS: OXYBUTYNIN 5 MG TABLET PO ×3 (09:49→20:16)
--- NOTE | 2019-05-18 10:16 | OT.IP.TRT ---
Occupational Therapy Treatment Note M2 OT-IP Current Condition Start: 05/17/19 16:32 Freq: Status: Active Protocol: Document 05/17/19 16:33 [facility] (Rec: 05/17/19 16:51 [facility] [id number]) Occupational Therapy Current Condition Current Condition Evaluation Date 05/17/19 Treatment Diagnosis GLF, dehydration Diagnosis Onset Date 05/16/19 Weight Bearing Status Weight Bearing Status Weight Bear as Tolerated M3 OT- IP Subjective and Pain Start: 05/17/19 16:32 Freq: Status: Active Protocol: Document 05/18/19 09:44 [facility] (Rec: 05/18/19 10:16 [facility] [id number]) OT- Subjective Occupational Therapy Visit Type Type Treatment Note Visit Start Time 08:45 Visit Stop Time 09:41 Total Visit Minutes 56 Occupational Therapy Visit Comments Patient Comments Pt agreed to get up. Pt's daughter came in during OT session and clarified that pt does not have a lift chair and often sleeps in her recliner. Pt's daughter aware pt has poor safety awareness and memory but unable to provide 24/7 assist at home for her as daughter works and also lives next door. Pt's daughter states prior pt able to go up 2 steps and to landing and another 2 steps to get into their house to have meals. Patient/Caregiver Goals Pt wanting to go home. OT Pain Assessment Pain When Pain Assessed At Rest Pain Present Pain Present Denied Pain M4 OT- IP ADL's Start: 05/17/19 16:32 Freq: Status: Active Protocol: Document 05/18/19 09:44 [facility] (Rec: 05/18/19 10:16 [facility] [id number]) OT ADL-Dressing General Eval Lower Body Dressing Ability Moderate Assistance Comments OT Dressing Comments Pt not able to tonny her socks and needing MODA . OT ADL-Toileting General Evaluation Toileting Ability Standby Assistance,Maximum Assistance Areas Needing Assistance Perform Perineal Hygiene Devices Toileting Assistive Devices Grab Bars Comments OT Toileting Comments Pt able to stand to reach from the front for pericare needs, however unable to reach from the back if having to clean herself after bowel movement. Educated pt on use of toilet aid or bidet to assist for completeness otherwise will need to have someone assist. M5 OT- IP IADL's Start: 05/17/19 16:32 Freq: Status: Active Protocol: Document 05/17/19 16:33 [facility] (Rec: 05/17/19 16:51 [facility] [email or web address]) OT-Instrumental Activities of Daily Living Home Safety Awareness Ability to Problem Solve Emergency Unable to Problem Solve Situations Home Safety Comments Pt unable to state to call 911 if having chest pain at home. Pt states, I would wait awhile and then hold my chest. Money Management Money Management Caregiver Provides Assistance Driving Driving Caregiver Provides Assist M6 OT- IP Functional Cognition Start: 05/17/19 16:32 Freq: Status: Active Protocol: Document 05/18/19 09:44 [facility] (Rec: 05/18/19 10:16 [facility] [id number]) Cognitive Factors Limiting Selfcare Function Cognitive Ability Level of Alertness Alert Patient Orientation Name,Year,Place,Situation Attention Span Ability Capable of Focused Attention, Capable of Sustained Attention Ability to Follow Commands Able to Follow One Step Commands Memory Description Short Term Impaired Safety Awareness Underestimates Need for Assistance Problem Solving Ability Unable to Identify Errors, Needs Assist to Identify Solutions Executive Function Ability Unable to Filter Distractions, Unable to Make Plans,Unable to Organize Plans,Unable to Remember Details Cognitive Tests SLUMS Pt scored 7/30 on which normal score for her at least 25/30. Pt's score indicating dementia. Cognitive Comments Cognitive Assessment Comments Pt highly distracted- wanting to reach for her glasses on tray table while trying to walk back to the recliner. Pt not remembering where the sink was located to wash her hands after using the bathroom . Pt trying to use the same toilet paper which contained dried nasal mucus to wipe after use of toilet and needing cues to use another piece toilet paper. Overall pt highly distracted, poor safety awareness, and decreased short term memory and at this time not recommended to go home alone and would need 14/02 supervision/assist. Pt needing cues to turn all the way around with FWW before sitting or reaching out to grab bar. M7 OT- IP Mobility and Balance Start: 05/17/19 16:32 Freq: Status: Active Protocol: Document 05/18/19 09:44 [facility] (Rec: 05/18/19 10:16 [facility] [id number]) OT- Bed Mobility Assessment Rolling Type of Rolling Roll to Right Supine to Sit Supine to Sit Assist Standby Assistance,Bedrails Scooting Scooting to Edge of Bed Maximum Assistance,1 Person Assistance OT-Transfer Assessment Sit to and From Stand Sit to and from Stand Standby Assistance,Contact Guard Assistance,1 Person Assistance Transfers Transfer Ability Standby Assistance,1 Person Assistance Technique Transfer Destination Bed,Chair,Toilet Transfer Technique Stand Step Pivot Devices Transfer Assistive Devices Gait Belt,Front Wheeled Walker Comments Mobility Comments Pt greatly improved from yesterday, however still needing MODA to help scoot forwards in the bed and heavy use of bed rail to help get up from side lying to upright. Today pt CGA /SBA to stand and use of FWW. OT- Balance Assessment Sitting Balance and Reactions Static Sitting Balance Ability Normal Dynamic Sitting Balance Ability Good Standing Balance and Reactions Static Standing Balance Ability Fair M8 OT- IP Objective Assessments Start: 05/17/19 16:32 Freq: Status: Active Protocol: Document 05/17/19 16:33 [facility] (Rec: 05/17/19 16:51 [facility] [id number]) OT Gross Range of Motion Upper Extremity Range of Motion ROM Impairments RUE 0-90, LUE 0-100 shoulder flexion. OT Strength Comments Strength Comments BUE 4-/5 OT-Muscle Tone Assessment Muscle Tone WNL Yes M9 OT- IP Assessment and Plan Start: 05/17/19 16:32 Freq: Status: Active Protocol: Document 05/18/19 09:44 [facility] (Rec: 05/18/19 10:16 [facility] [email or web address]) OT Summary Assessment and Plan Potential Rehabilitation Potential Good Analytic Complexity at Evaluation Low Summary OT Impairments Balance,Functional Cognition, Functional Mobility,Dressing, Toileting,Bathing,Toilet Transfers,Shower Transfers Progress Towards Goals Slow Progress due to Cognition Assessment Summary Pt much improved with mobility needs, however poor safety awareness and still needing assist for ADL needs. Recommended skilled rehab, and eventually may need memory care. Goals Grooming Goal Standby Assistance Dressing Goal Minimal Assistance Toileting Goal Minimal Assistance Bathing Goal Moderate Assistance Toilet Transfer Goal Standby Assistance Shower Transfer Goal Contact Guard Assistance OT-Other Goals Shower Days to Meet Goals 5 Frequency of Treatment Frequency Of Treatment Once a Day Treatment Plan OT Treatment Plan ADL Training,Functional Cognition Training,Functional Mobility,Patient/Family Education,Discharge Planning Discharge Recommendations OT Discharge Recommendations SNF Rehab
[2019-05-18] MEDS: NYSTATIN POWDER 15GM 1 APPLIC TOP ×2 (10:37→20:14)
--- NOTE | 2019-05-18 10:49 | PM.PN.1 ---
Subjective Subjective Date Patient Seen: 05/18/19 Interval history: Gabbie Coyne is a 73-year-old female with past medical history hypertension, hyperlipidemia, previous brain aneurysm status post coiling and subsequent lobe surgery after unknown complications, right lung resection and according to the daughter short-term memory loss and probable dementia who presented after a fall where she was found down by her son-in-law and was on the floor for approximately 15 hours, she was admitted to medicine for further evaluation and elevated troponin. The patient is resting in bed comfortably. She reports she feels lousy overall. She has no specific complaints. She is eager to return home. She continues to have significant generalized weakness and will require continued rehabilitation and await prison facility placement. She has no complaints and denies headache, shortness of breath, chest pain, abdominal pain, nausea, vomiting, fever, chills, dysuria, diarrhea or constipation. She is voiding via Calle catheter which will be removed and attempt void trial. Patient is eliminating without difficulty. She is up ambulating with 2 person assistance. Exam Vital Signs (past 8 hours): - 05/18/19 09:47 05/18/19 09:48 05/18/19 12:00 Temperature 97.7 F Pulse Rate 61 61 63 Respiratory Rate 14 Blood Pressure 151/78 H 151/78 H 176/80 H Pulse Oximetry 98 Fraction of Inspired Oxygen 21 Oxygen Delivery Method Room Air Oxygen Flow Rate 0 Narrative Exam Narrative: General: Elderly female lying in bed and in no acute distress, well-developed, well-nourished, mild to moderate dementia with short-term memory recall deficit but otherwise appropriately interactive. HEENT: Normocephalic, atraumatic. External ears without defect. Pupils equal, round, and reactive to light. Anicteric sclerae, moist conjunctivae, and no lid lag. Neck: Supple with full range of motion. No lymphadenopathy or thyromegaly. Cardiovascular: Regular rate and rhythm without murmurs, rubs, or gallops appreciated. Pulmonary: Clear to auscultation bilaterally without crackles, wheezes, or rhonchi. Normal respiratory effort with no use of accessory muscles. Abdomen: Soft, bowel sounds present, nontender, nondistended. No hepatosplenomegaly or masses appreciated. Extremities: No clubbing, cyanosis, or edema. Skin: Normal temperature, turgor, and texture; no rash, ulcers, or subcutaneous nodules appreciated. Neurological: Cranial nerves grossly intact. Generalized weakness. Psychiatric: Normal mood and affect. Alert and oriented to person and place. [id number] dementia with short-term memory recall deficit. Objective Labs Result Diagrams: 05/18/19 05:20 05/18/19 05:20 Labs: Laboratory Results - last 24 hr 05/18/19 05/18/19 05:20 05:20 WBC 6.3 RBC 4.50 Hgb 13.1 Hct 39.8 MCV 88.4 MCH 29.2 MCHC 33.0 RDW 15.3 H Plt Count 170 Neut % (Auto) 66.8 Lymph % (Auto) 20.2 L [place] % (Auto) 9.1 Eos % (Auto) 3.4 Baso % (Auto) 0.5 Neut # (Auto) 4200 Lymph # (Auto) 1300 [place] # (Auto) 600 Eos # (Auto) 200 Baso # (Auto) 0 Sodium 140 Potassium 3.9 Chloride 110 H Carbon Dioxide 26 BUN 17 Creatinine 0.80 Estimated GFR > 60.0 BUN/Creatinine Ratio 21.3 Glucose 102 Calcium 9.5 Magnesium 2.1 Assessment & Plan Assessment & Plan narrative: Gabbie Coyne is a 73-year-old female with past medical history hypertension, hyperlipidemia, previous brain aneurysm status post coiling and subsequent lobe surgery after unknown complications, right lung resection and according to the daughter short-term memory loss and probable dementia who presented after a fall where she was found down by her son-in-law and was on the floor for approximately 15 hours, she was admitted to medicine for further evaluation and elevated troponin. 1. Acute ground level fall with generalized weakness, present on admission. Active. -Given history initially concerned for possible seizure. However, her CK was only mildly elevated but she appeared very dehydrated. There are no apparent tongue lacerations are bite lee on my exam. She does endorse dysuria and urinary frequency so her recent weakness that she complains is likely secondary to urinary tract infection. She does appear to be weak in her bilateral lower extremities but she still has sensation and has no focal neurological deficits. -Lamotrigine level pending. -Continued IV fluid hydration until adequately hydrated then discontinued. -Patient was retaining 900 cc of urine, Calle catheter was placed and urine was positive for UTI as noted below. Discontinued Calle catheter today. -Continue PT and OT evaluation and treatment. -TSH is unremarkable. 2. Acute metabolic encephalopathy in setting of dementia with previous ruptured brain aneurysm, present on admission. Acute metabolic encephalopathy resolved. -Patient is now at baseline mentation per the patient's daughter. -Continue ceftriaxone as noted below. -Occupational therapy performed SLUMS and scored 7. 3. UTI, acute, present on admission. Resolving. -Possibly secondary to urinary retention given high volume on bladder scan. Removed Calle catheter today. -Continue ceftriaxone 1 g IV daily to complete 5 day course. 4. Elevated troponin, present on admission. Resolved. -Secondary to demand ischemia from UTI as above. Troponin down trended and resolved. 5. Hypertension, chronic, present on admission. Stable. -Continue home metoprolol succinate 25 mg daily. 6. Hyperlipidemia, chronic, present on admission. Stable. -Continue home atorvastatin 40 mg daily. 7. History of brain aneurysm with seizure disorder. -Continue lamotrigine 50 mg twice daily. -Ordered lamotrigine level which is a send out and pending, therefore, will need to be followed up by PCP or physician at prison facility. 8. Hypothyroidism, chronic, present on admission. Stable. -TSH is unremarkable at 4.15. -Continue home levothyroxine 150 mcg daily. 9. Elevated glucose, present on admission. Resolved. -Most likely reactive given a1c of 5.2%. Code: DNR Disposition: Patient will discharge to prison facility for continued rehabilitation tomorrow. Quality VTE Deep Vein Thrombosis/Pulmonary Embolism Present on Admission: No
--- NOTE | 2019-05-18 11:15 | PT.IPTN ---
Current Diagnoses Urinary tract infection, site not specified (05/16/19) Physical Therapy Treatment Note M2 PT-IP Current Condition Start: 05/17/19 13:00 Freq: NEEDED Status: Active Protocol: Document 05/17/19 10:06 AB (Rec: 05/17/19 13:26 AB [id number]) Physical Therapy Current Condition Current Condition Evaluation Date 05/17/19 Treatment Diagnosis GLF; difficulty in walking Onset Date 05/16/19 Precautions Other Precautions falls M3 PT-IP Subjective Start: 05/17/19 13:00 Freq: NEEDED Status: Active Protocol: Document 05/18/19 11:15 AB (Rec: 05/18/19 12:46 AB [id number]) Subjective Physical Therapy Visit Type Type Treatment Note Visit Start Time 11:15 Visit Stop Time 11:46 Total Visit Minutes 16 Number of OUTREACH LIAISON Visits 0 Physical Therapy Visit Comments Patient Comments pt agreeable to do PT Therapy Pain Assessment Pain When Pain Assessed At Rest Pain Present Pain Present Pain Reported Location Back Scale Used pain scale not stated Description Chronic M4 PT-IP Mobility and Gait Start: 05/17/19 13:00 Freq: NEEDED Status: Active Protocol: Document 05/18/19 11:15 AB (Rec: 05/18/19 12:46 AB [id number]) PT-Bed Mobility Assessment Supine to Sit Supine to Sit Moderate Assistance,1 Person Assistance,Bedrails Sit to Supine Sit to Supine Moderate Assistance,1 Person Assistance,Bedrails Scooting Scooting to Edge of Bed Maximum Assistance PT-Transfer Assessment Sit to and From Stand Sit to and from Stand Contact Guard Assistance, Minimal Assistance,1 Person Assistance,Use of Upper Extremities Equipment Transfer Assistive Device Gait Belt,Front Wheeled Walker Orthotic/Prosthetic Devices or Brace: No Transfers Transfer Destination Bed,Chair,Toilet Transfer Technique Stand Step Pivot Transfer Ability Level of Assist Contact Guard Assistance,1 Person Assistance,Use of Upper Extremities Comments Mobility Comments pt ambulated using FWW bed to the toilet CGA to min A and cues. required CGA to min A for sit to stand from the toilet using grab bars for support. pt required CGA to maintain standing balance while managing her brief. Gait Assessment Gait Gait Assistance Required: Contact Guard Assist,Minimum Assistance Distance (Feet) 40 Able to Maintain Weight Bearing Status Yes During Gait Assistive Devices Assistive Device Gait Belt,Front Wheeled Walker Orthotic/Prosthetic Devices or Brace: No Gait Deviations General Gait Pattern Antalgic,Decreased Stride Length,Decreased Feet Clearance,Step-to Gait Factors Limiting Gait Function Factors Limiting Gait Function Decreased Activity Tolerance, Decreased Strength,Limited Range of Motion,Pain,Poor Balance,Poor Safety Awareness M5 PT-IP Objective Assessments Start: 05/17/19 13:00 Freq: NEEDED Status: Active Protocol: Document 05/17/19 10:06 AB (Rec: 05/17/19 13:26 AB [id number]) Orientation Orientation/Cognition Level of Alertness Alert Orientation Name,Place,Situation Language Function Ability Hard of Hearing Safety Awareness Decreased Safety Awareness Gross Range of Motion Lower Extremity ROM Assessment Within Functional Limits Strength Lower Extremity Strength Assessment Bilaterally Impaired Comments Strength Comments RLE : 3+/5 LLE: 4-/5 Coordination Assessment Gross Coordination Gross Coordination WNL Muscle Tone Muscle Tone WNL Yes M6 PT-IP Treatment Start: 05/17/19 13:00 Freq: NEEDED Status: Active Protocol: Document 05/18/19 11:15 AB (Rec: 05/18/19 12:46 AB [id number]) Physical Therapy Treatment Education Education Provided Safety M7 PT-IP Assessment and Plan Start: 05/17/19 13:00 Freq: NEEDED Status: Active Protocol: Document 05/18/19 11:15 AB (Rec: 05/18/19 12:46 AB [id number]) PT Summary Assessment and Plan Potential Rehabilitation Potential Good Summary Impairments Pain,ROM,Strength,Balance, Coordination,Sensation,Tone, Cognition,Bed Mobility, Transfers,Gait,Activity Tolerance Progress Towards Goals Progressing Toward Goals Assessment Summary pt progressing with ambulation but continues to be a fall risk. pt also has (+) SOB during activity and has decrease activity tolerance. pt does not have assistance at home and at this time will require 24/ assist. pt stated that her daughter lives close by but daughter goes to work and at times will be away for days. pt will require SNF rehab to improve strength and functional independence. Goals Bed Mobility Goal Minimal Assistance Transfer Goal Contact Guard Assistance,Front Wheeled Walker Gait Goal Contact Guard Assistance,Front Wheel Walker Gait Distance 100 Days to Meet Goals 10 Frequency of Treatment Frequency Of Treatment Once a Day Treatment Plan Physical Therapy Treatment Plan Bed Mobility Training,Transfer Training,Gait Training, Therapeutic Exercise,Balance Retraining,Post Op Education, Discharge Planning,Hot or Cold Pack,Neuromuscular Re-ed, Coordination Retraining,Manual Therapy Other Recommendations and Next Treatment transfers, ambulation Focus Recommendations To Nursing Amount of Assist Needed 1 Person Assist Discharge Recommendations PT Discharge Recommendations SNF Rehab
--- NOTE | 2019-05-18 12:54 | PC.NURSE ---
Dayshift Note: Pt assessed this am. Pt denies pain. Pt oriented x3, pt's daughter states that pt has cognitive deficit, please see OT evaluation for further details. Dr. Reddy at bedside, order to stop IVF and remove cyr catheter. Pt's cyr removed without incident. Pt has voided since cyr removed. Pt given shower by TECHNICAL SYSTEM ANALYST, pt's nystatin applied under pannus, under breasts and in gluteal fold. 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 Dr. Reddy notified and aware of prior imaging. Dr. Reddy to follow-up with patient. Pt otherwise on RA, tolerating diet. Pt's daughter has expressed concern with plan to discharge home with home care. Dr. Reddy and Care Management notified. Will continue to monitor. Notify MD with changes..
--- NOTE | 2019-05-18 20:36 | PC.NURSE ---
1999 - SBA to bathroom to void. Post void residual check 147cc. Hospitalist notified. Pt c/o headache. 6 of 10. APAP given. Able to take PO meds without difficulty. Bed alarm on. Call light in reach.
[2019-05-19 00:40] VITALS: BP 150/87; PULSE 72; RESP 20; TEMP 36.2; O2SAT 95
[2019-05-19] MEDS: SODIUM CHLORIDE 0.9% FLUSH 10 ML IV ×2 (01:21→08:11)
[2019-05-19] MEDS: CEFTRIAXONE 1 GM/50 ML FROZ.PIGGY IV (01:21)
[2019-05-19 05:18] VITALS: BP 159/79; PULSE 60; RESP 20; TEMP 37.1; O2SAT 94
--- NOTE | 2019-05-19 06:29 | PC.NURSE ---
Levothyroxine 150 mcg. due to administer @ 0600 is not in pt's. nurse's linux server engineer, Coordinator notified. Will report to day RN.
[2019-05-19 08:00] VITALS: BP 164/89; PULSE 67; RESP 18; TEMP 36.4; O2SAT 97
[2019-05-19] MEDS: LEVOTHYROXINE 150 MCG TABLET PO (08:08)
[2019-05-19] MEDS: ACETAMINOPHEN 325 MG TABLET 650 MG PO (08:08)
[2019-05-19] MEDS: ATORVASTATIN 20 MG TABLET 40 MG PO (08:08)
[2019-05-19] MEDS: ENOXAPARIN 40 MG/0.4 ML SYRINGE SUBCUT (08:09)
[2019-05-19] MEDS: lamoTRIgine 25 MG CHEW TABLET 50 MG PO (08:10)
[2019-05-19] MEDS: METOPROLOL ER 25 MG TABLET PO (08:11)
[2019-05-19] MEDS: MULTIVITAMIN 1 TABLET 1 TAB PO (08:11)
[2019-05-19] MEDS: OXYBUTYNIN 5 MG TABLET PO (08:11)
[2019-05-19] MEDS: LOSARTAN 50 MG TABLET 100 MG PO (08:14)
--- NOTE | 2019-05-19 08:55 | P.DS_ITS ---
History of Present Illness History of Present Illness Date Patient Seen: 05/16/19 Chief complaint: GLF, on floor 15 hrs Narrative: Written by Dr. Salgado: Ms. Coyne is a 73-year-old female with past medical history hypertension, hyperlipidemia, previous brain aneurysm status post coiling and subsequent lobe surgery after unknown complications, right lung resection and according to the daughter short-term memory loss and probable dementia who presented after a fall where she was found down by her son-in-law. She was down for about 15 hours and weak and dehydrated and brought to the emergency room. She does not remember falling, the last thing she remembers is watching television and then waking up sometime later on the floor with her son-in-law there. She denies any recent fever, chills, chest pain, shortness of breath, palpitations, nausea, vomiting. She does endorse dysuria and urinary frequency. According to the daughter she has multiple falls, and has been quite weak. In the emergency room, her vitals 1 neural for hypertension however she was not febrile. She had a mild WBC count elevation of 12.3 but her CBC was otherwise unremarkable. Her BMP was remarkable for a calcium of 10.4 and a glucose of 173, her lactate was 1.4. Her CK was 208 and initial troponin was 0.036. BNP was 105. She had a CT scan which showed a prior coiling but was unchanged from prior Discharge Providers Provider Date of admission: 05/16/19 13:17 Discharge Date: 05/19/19 Consults: 05/16/19 17:04 Consult to Occupational Therapy Evaluate & Treat Comment: Physician Instructions: Evaluate and treat Consult to Physical Therapy Evaluate & Treat Comment: Physician Instructions: Evaluate and Treat Discharge provider: Amira Reddy DO Summary Hospital Course Discharge Diagnosis: 1. Acute ground level fall with generalized weakness, present on admission. Active. 2. Acute metabolic encephalopathy in setting of moderate to severe dementia with previous ruptured brain aneurysm, present on admission. Acute metabolic encephalopathy resolved. 3. UTI, acute, present on admission. Resolving. 4. Elevated troponin, present on admission. Resolved. 5. Hypertension, chronic, present on admission. Stable. 6. Hyperlipidemia, chronic, present on admission. Stable. 7. History of brain aneurysm with seizure disorder. 8. Hypothyroidism, chronic, present on admission. Stable. 9. Elevated glucose, present on admission. Resolved. 10. Morbid obesity, chronic, present on admission. Stable. Hospital Course: Gabbie Coyne is a 73-year-old female with past medical history hypertension, hyperlipidemia, previous brain aneurysm status post coiling and subsequent lobe surgery after unknown complications, right lung resection and according to the daughter short-term memory loss and probable dementia who presented after a fall where she was found down by her son-in-law and was on the floor for approximately 15 hours, she was admitted to medicine for further evaluation and elevated troponin. 1. Acute ground level fall with generalized weakness, present on admission. Active. -Given history initially concerned for possible seizure. However, her CK was only mildly elevated but she appeared very dehydrated. There are no apparent tongue lacerations are bite lee on my exam. She does endorse dysuria and urinary frequency so her recent weakness that she complains is likely secondary to urinary tract infection. She does appear to be weak in her bilateral lower extremities but she still has sensation and has no focal neurological deficits. -Lamotrigine level pending. -Continued IV fluid hydration until adequately hydrated then discontinued. -Patient was retaining 900 cc of urine, Calle catheter was placed and urine was positive for UTI as noted below. Discontinued Calle catheter today. -Continued PT and OT evaluation and treatment. -TSH is unremarkable. 2. Acute metabolic encephalopathy in setting of moderate to severe dementia with previous ruptured brain aneurysm, present on admission. Acute metabolic encephalopathy resolved. -Patient is now at baseline mentation per the patient's daughter. -Continued ceftriaxone as noted below. -Occupational therapy performed SLUMS and scored 7. Patient is able to mask memory impairment well. 3. UTI, acute, present on admission. Resolving. -Possibly secondary to urinary retention given high volume on bladder scan. Removed Calle catheter and patient able to void without difficulty without significant postvoid residual. -Continued ceftriaxone 1 g IV daily and discharged on Keflex 500 mg twice daily for 2 additional days to complete 5 days total. 4. Elevated troponin, present on admission. Resolved. -Secondary to demand ischemia from UTI as above. Troponin down trended and res olved. 5. Hypertension, chronic, present on admission. Stable. -Continued home metoprolol succinate 25 mg daily. 6. Hyperlipidemia, chronic, present on admission. Stable. -Continued home atorvastatin 40 mg daily. 7. History of brain aneurysm with seizure disorder. -Continued lamotrigine 50 mg twice daily. -Ordered lamotrigine level which is a send out and pending, therefore, will need to be followed up by PCP or physician at long term facility. 8. Hypothyroidism, chronic, present on admission. Stable. -TSH is unremarkable at 4.15. -Continued home levothyroxine 150 mcg daily. 9. Elevated glucose, present on admission. Resolved. -Most likely reactive given a1c of 5.2%. 10. Morbid obesity, chronic, present on admission. Stable. -BMI 43.3. -Counseled patient on lifestyle modification including diet and exercise. 11. Psoriasis, chronic, present on admission. Stable. -Patient reports psoriasis on back of head/neck that was diagnosed by Dermatology in the past. -Ordered triamcinolone cream to be applied b.i.d. as needed. Exam Vital Signs (past 8 hours): - 05/19/19 05:18 05/19/19 08:00 Temperature 98.8 F 97.5 F L Pulse Rate 60 67 Respiratory Rate 20 18 Blood Pressure 159/79 H 164/89 H Pulse Oximetry 94 97 Fraction of Inspired Oxygen 21 Oxygen Delivery Method Room Air Oxygen Flow Rate 0 Narrative Exam Narrative: General: Elderly female lying in bed and in no acute distress, well-developed, well-nourished, moderate to severe dementia with short and long-term memory recall deficit but otherwise appropriately interactive. HEENT: Normocephalic, atraumatic. External ears without defect. Pupils equal, round, and reactive to light. Anicteric sclerae, moist conjunctivae, and no lid lag. Neck: Supple with full range of motion. No lymphadenopathy or thyromegaly. Psoriasis plaque at base of head/neck. Cardiovascular: Regular rate and rhythm without murmurs, rubs, or gallops appreciated. Pulmonary: Clear to auscultation bilaterally without crackles, wheezes, or rhonchi. Normal respiratory effort with no use of accessory muscles. Abdomen: Soft, bowel sounds present, nontender, nondistended. No hepatosplenomegaly or masses appreciated. Extremities: No clubbing, cyanosis, or edema. Skin: Normal temperature, turgor, and texture; no rash, ulcers, or subcutaneous nodules appreciated. Neurological: Cranial nerves grossly intact. Generalized weakness. Psychiatric: Normal mood and affect. Alert and oriented to person and place. Moderate to severe dementia with short and long-term memory recall deficit. Objective Labs Result Diagrams: 05/18/19 05:20 05/18/19 05:20 Discharge Plan Discharge Plan Patient Disposition: SNF Transfer to: [facility] Discharge Med Rec/Prescriptions Prescriptions: New cephalexin 500 mg capsule 500 mg PO BID Qty: 4 RF: 0 Continued atorvastatin 40 mg tablet 40 mg PO DAILY RF: 0 levothyroxine 150 mcg tablet 150 mcg PO DAILY RF: 0 metoprolol succinate 25 mg tablet extended release 24 hr 25 mg PO DAILY RF: 0 losartan 100 mg tablet 100 mg PO DAILY RF: 0 meclizine 25 mg tablet 25 mg PO TID PRN (Reason: dizziness) Qty: 10 RF: 0 ondansetron 4 mg tablet,disintegrating 4 mg PO Q6-8H PRN (Reason: nausea and vomiting) Qty: 10 RF: 0 lamotrigine 25 mg tablet 50 mg PO BID RF: 0 betamethasone dipropionate 0.05 % cream 1 applic TOPICAL BID PRN (Reason: irritation or rash) RF: 0 oxybutynin chloride 5 mg tablet 5 mg PO TID RF: 0 multivitamin Tablet 1 tab PO DAILY RF: 0 garlic 1 cap PO DAILY RF: 0 Neutrogena T-Gel 0.5 % Shampoo 1 applic TOPICAL QPM PRN (Reason: dandruff) RF: 0 Discharge Health Status Brief summary of current health status: Gabbie Coyne is a 73-year-old female with past medical history hypertension, hyperlipidemia, previous brain aneurysm status post coiling and subsequent lobectomy after unknown complications, right lung resection and dementia who presented after a fall where she was found down by her son-in-law. Patient found to have pansensitive E coli UTI which is undergoing treatment. Patient requires continued rehabilitation with physical and occupational therapy due to generalized weakness. Multidrug resistant organism: No MDRO Provider Discharge Instructions Diet: Diet as Tolerated, Low-fat, Low-sodium and Low-cholesterol Activity: Activity as tolerated with four-wheel walker and physical and occupational therapy [facility] Rehab type: Physical therapy and Occupational therapy Visit Report/Discharge Packet Visit Report Forms: Patient Portal/API, Stroke Signs & Symptoms Quality VTE Deep Vein Thrombosis/Pulmonary Embolism Present on Admission: No
--- NOTE | 2019-05-19 09:30 | CM.DPC ---
Addendum entered by Trinidad Smart R.N. 05/19/19 10:42: IMM signed and placed in need to be Scanned folder. Trinidad Smart RN. Original Note: DCP continued: EMR reviewed: CM spoke with [facility] they can hot die picker at 2:30pm today to transport patient, PASRR completed and faxed along with DC summary and SNF order to [facility]. Cm spoke to patients nurse and sent patient to let them know about transport coming at 2:30pm today 05/19/[address] [facility]. CM called patients daughter Maria Teresa at [phone] [facility] accepted patient and that transport has been set up for 2:30pm today. Pt daughter Maria Teresa stated understanding. CM put PASRR, Signed medication list and DC summary into D/C packet at nurses station. Trinidad Smart RN.
[2019-05-19] MEDS: NYSTATIN POWDER 15GM 1 APPLIC TOP (11:44)
[2019-05-19] MEDS: TRIAMCINOLONE 0.1% OINT 15 GM 1 APPLIC TOP (11:45)
--- NOTE | 2019-05-19 11:50 | PC.NURSE ---
Patient up to chair for breakfast. Patient described pain in her back. PRN tylenol given. Legs elevated. Noted moderate edema in bilateral legs/ankles and feet. More so on the right than the left. This is normal per the patient. Patient has excoriation on coccyx. Skin irritation along abdominal crease. Nystatin applied. Patient c/o itching around hairline. Topical triamcimolone applied per MAR. Patient denies pain, SOB or nausea at this time. Patient ambulated to restroom, 100ml of clear urine and one unmeasured void noted. IV is CDI. Saline locked at this time.
[2019-05-19 12:00] VITALS: BP 141/71; PULSE 52; RESP 18; TEMP 36.5; O2SAT 97
[2019-05-20 17:17] LABS: Lamotrigine Lamictal < 0.5 mcg/mL (4.0-18.0)
== END 2019-05-19 14:38 | DRG 689 ==
LOC: ED 12:59 → AC 14:35
PROVIDERS: Nurse Practitioner Gerontology; Admitting Provider Internal Medicine; Emergency Provider Emergency Medicine; Visit Provider Internal Medicine
DX: N39.0 Urinary tract infection, site not specified (principal); G93.41 Metabolic encephalopathy; G40.802 Other epilepsy, not intractable, without status epilepticus; Z68.41 Body mass index [BMI] 40.0-44.9, adult; I24.8 Other forms of acute ischemic heart disease; R33.9 Retention of urine, unspecified; E86.0 Dehydration; I10 Essential (primary) hypertension; R53.1 Weakness; E66.01 Morbid (severe) obesity due to excess calories; E78.5 Hyperlipidemia, unspecified; E03.9 Hypothyroidism, unspecified; W18.30XA Fall on same level, unspecified, initial encounter; Z87.891 Personal history of nicotine dependence
CPT/HCPCS: 36415; 70450; 71045; 71260; 72170; 74177; 80048; 80053; 80175; 81001; 82550; 82553; 82805; 83036; 83605; 83735; 83880; 84443; 84484; 85025; 87040; 87077; 87086; 87186; 96360; 97161; 97165; 97530; 97535; 99284; J1650; Q9967